=== PATIENT | male | born 1965 | race Caucasian/White ===

== ENCOUNTER 2020-09-02 01:37 | Emergency (ER) | payer BC ==
[2020-09-02 02:08] VITALS: BP 133/83
== END 2020-09-02 05:37 | disposition left against medical advice (07) ==
LOC: ED 01:37
DX: E11.9 Type 2 diabetes mellitus without complications (principal); Z53.21 Procedure and treatment not carried out due to patient leaving prior to being seen by health care provider
CPT/HCPCS: 82962

== ENCOUNTER 2020-09-10 00:55 | Emergency (ER) | payer BC ==
--- NOTE | 2020-09-10 01:52 | Event Note ---
ED Screening Note ED Screening Note: Patient presents for hyperglycemia for 2 days He states his sugars have been over 600 for the last 2 days He states that he takes Metformin and insulin as needed He states he typically only uses the insulin if his sugar is greater than 300 He states he has urinary frequency, polydipsia, dry mouth He denies any fever, nausea, vomiting, diarrhea He denies any recent illness Past medical history of diabetes and hypertension Allergy to aspirin This initial assessment/diagnostic orders/clinical plan/treatment(s) is/are subject to change based on patients health status, clinical progression and re- assessment by fellow clinical providers in the ED. Further treatment and workup at subsequent clinical providers discretion. Patient/guardian urged not to elope from the ED as their condition may be serious if not clinically assessed and managed. Initial orders include: Labs, urine
[2020-09-10 02:09] LABS: Bilirubin,Urine NEG (Negative); Blood,Urine NEG (Negative); Color,Urine Straw (Yellow); Protein,Urine <15 mg/dL mg/dL (Negative); Urobilinogen,Urine < 2.0 mg/dL (<2.0)
[2020-09-10 02:13] LABS: RBC,Urine < 1.0 /HPF (0.0-6.0); WBC,Urine < 1.0 /HPF (0.0-6.0)
[2020-09-10 02:21] LABS: Basophils % (Auto) 0.5 % (0.0-1.8); Eosinophils # (Auto) 0.4 K/mm3 (0.0-0.4); Eosinophils % (Auto) 4.3 % (0.0-4.3); Hemoglobin 16.6 gm/dl (11.8-15.2); Lymphocytes % (Auto) 35.9 % (13.4-35.0); Mean Corpuscular HGB Conc 35 % (32-34); Mean Corpuscular Volume 93 fl (84-94); Monocytes # (Auto) 0.9 K/mm3 (0.0-0.8); Monocytes % (Auto) 10.4 % (0.0-7.3); Platelet Count 297 K/mm3 (140-440); Red Blood Count 5.14 M/mm3 (3.65-5.03); Red Cell Distribution Width 12.8 % (13.2-15.2)
[2020-09-10 02:43] LABS: Alanine Aminotransferase 25 units/L (7-56); Albumin 4.1 g/dL (3.9-5); BUN/Creatinine Ratio 21; Blood Urea Nitrogen 17 mg/dL (9-20); Calcium 10.9 mg/dL (8.4-10.2); Hemolysis Index 6
[2020-09-10] MEDS ORDERED: SODIUM CHLORIDE 0.9% 1000 ML 1,000 ML IV ONE (03:09)
[2020-09-10] MEDS ORDERED: ACETAMINOPHEN 325 MG TAB PO ONE (03:10)
--- NOTE | 2020-09-10 03:24 | Emergency Department Report ---
ED General Adult HPI - General Chief complaint: Hyperglycemia Stated complaint: HIGH BLOOD SUGAR Time Seen by Provider: 09/10/20 01:51 Source: patient Mode of arrival: Ambulatory Limitations: No Limitations - History of Present Illness Initial comments: Language line used for Romanian interpretation Patient is a 55 yo male who presents for hyperglycemia for 2 days He states his sugars have been over 600 for the last 2 days He states that he takes Metformin and insulin as needed He states he typically only uses the insulin if his sugar is greater than 300 He states he has urinary frequency, polydipsia, dry mouth He denies any fever, nausea, vomiting, diarrhea He denies any recent illness he states he does have a mild headache he states he also gets a burning/tingling sensation in his fingertips Past medical history of diabetes and hypertension Allergy to aspirin - Related Data Previous Rx's Medication Instructions Recorded Last Taken Type Benzonatate [Tessalon Perles] 100 mg PO Q8HR PRN #20 capsule 05/31/19 Unknown Rx Pantoprazole [Protonix] 40 mg PO QDAY #30 tablet 12/27/19 Unknown Rx amLODIPine 10 mg PO DAILY #30 12/27/19 Unknown Rx metFORMIN [Glucophage] 850 mg PO BIDDIAB #60 tablet 12/27/19 Unknown Rx Allergies Allergy/AdvReac Type Severity Reaction Status Date / Time aspirin AdvReac Severe Swelling Verified 05/30/19 20:30 ED Review of Systems ROS: Stated complaint: HIGH BLOOD SUGAR Other details as noted in HPI Comment: All other systems reviewed and negative ED Past Medical Hx - Past Medical History Previous Medical History?: Yes Hx Hypertension: Yes Hx Diabetes: Yes Additional medical history: Hyperlipidemia - Surgical History Past Surgical History?: Yes Hx Appendectomy: Yes - Social History Smoking Status: Current Every Day Smoker Substance Use Type: Alcohol - Medications Home Medications: Home Medications Medication Instructions Recorded Confirmed Last Taken Type Benzonatate [Tessalon Perles] 100 mg PO Q8HR PRN #20 capsule 05/31/19 Unknown Rx Pantoprazole [Protonix] 40 mg PO QDAY #30 tablet 12/27/19 Unknown Rx amLODIPine 10 mg PO DAILY #30 12/27/19 Unknown Rx metFORMIN [Glucophage] 850 mg PO BIDDIAB #60 tablet 12/27/19 Unknown Rx ED Physical Exam - General Limitations: No Limitations General appearance: alert, in no apparent distress - Head Head exam: Present: atraumatic, normocephalic - Eye Eye exam: Present: normal appearance - ENT ENT exam: Present: mucous membranes moist - Respiratory Respiratory exam: Present: normal lung sounds bilaterally. Absent: respiratory distress, wheezes, rales, rhonchi, stridor, chest wall tenderness, accessory muscle use, decreased breath sounds, prolonged expiratory - Cardiovascular Cardiovascular Exam: Present: regular rate, normal rhythm, normal heart sounds. Absent: systolic murmur, diastolic murmur, rubs, gallop - Neurological Exam Neurological exam: Present: alert, oriented X3 - Psychiatric Psychiatric exam: Present: normal affect, normal mood - Skin Skin exam: Present: warm, dry, intact ED Course Vital Signs 09/10/20 09/10/20 09/10/20 01:15 05:10 05:40 Temperature 97.9 F 97.6 F Pulse Rate 110 H 82 Respiratory 16 16 18 Rate Blood Pressure 140/81 Blood Pressure 121/67 [Right] O2 Sat by Pulse 95 97 98 Oximetry ED Medical Decision Making - Lab Data Result diagrams: 09/10/20 01:56 09/10/20 01:56 Lab Results 09/10/20 09/10/20 09/10/20 Range/Units 01:15 01:55 01:56 WBC 8.5 (4.5-11.0) K/mm3 RBC 5.14 H (3.65-5.03) M/mm3 Hgb 16.6 H (11.8-15.2) gm/dl Hct 48.0 H (35.5-45.6) % MCV 93 (84-94) fl MCH 32 (28-32) pg MCHC 35 H (32-34) % RDW 12.8 L (13.2-15.2) % Plt Count 297 (140-440) K/mm3 Lymph % (Auto) 35.9 H (13.4-35.0) % Barber % (Auto) 10.4 H (0.0-7.3) % Eos % (Auto) 4.3 (0.0-4.3) % Baso % (Auto) 0.5 (0.0-1.8) % Lymph # (Auto) 3.0 (1.2-5.4) K/mm3 Barber # (Auto) 0.9 H (0.0-0.8) K/mm3 Eos # (Auto) 0.4 (0.0-0.4) K/mm3 Baso # (Auto) 0.0 (0.0-0.1) K/mm3 Seg Neutrophils % 48.9 (40.0-70.0) % Seg Neutrophils # 4.1 (1.8-7.7) K/mm3 VBG pH (7.320-7.420) Sodium (137-145) mmol/L Potassium (3.6-5.0) mmol/L Chloride (98-107) mmol/L Carbon Dioxide (22-30) mmol/L Anion Gap mmol/L BUN (9-20) mg/dL Creatinine (0.8-1.3) mg/dL Estimated GFR ml/min BUN/Creatinine Ratio % Glucose (75-100) mg/dL POC Glucose 280 H (70-105) mg/dL Calcium (8.4-10.2) mg/dL Total Bilirubin (0.1-1.2) mg/dL AST (5-40) units/L ALT (7-56) units/L Alkaline Phosphatase (35-129) units/L Total Protein (6.3-8.2) g/dL Albumin (3.9-5) g/dL Albumin/Globulin Ratio % Urine Color Straw (Yellow) Urine Turbidity Clear (Clear) Urine pH 7.0 (5.0-7.0) Ur Specific [place] 1.026 (1.003-1.030) Urine Protein <15 mg/dl (Negative) mg/dL Urine Glucose (UA) >=500 (Negative) mg/dL Urine Ketones Tr (Negative) mg/dL Urine Blood Neg (Negative) Urine Nitrite Neg (Negative) Urine Bilirubin Neg (Negative) Urine Urobilinogen < 2.0 (<2.0) mg/dL Ur Leukocyte Esterase Neg (Negative) Urine WBC (Auto) < 1.0 (0.0-6.0) /HPF Urine RBC (Auto) < 1.0 (0.0-6.0) /HPF U Epithel Cells (Auto) < 1.0 (0-13.0) /HPF 09/10/20 09/10/20 09/10/20 Range/Units 01:56 01:56 05:08 WBC (4.5-11.0) K/mm3 RBC (3.65-5.03) M/mm3 Hgb (11.8-15.2) gm/dl Hct (35.5-45.6) % MCV (84-94) fl MCH (28-32) pg MCHC (32-34) % RDW (13.2-15.2) % Plt Count (140-440) K/mm3 Lymph % (Auto) (13.4-35.0) % Barber % (Auto) (0.0-7.3) % Eos % (Auto) (0.0-4.3) % Baso % (Auto) (0.0-1.8) % Lymph # (Auto) (1.2-5.4) K/mm3 Barber # (Auto) (0.0-0.8) K/mm3 Eos # (Auto) (0.0-0.4) K/mm3 Baso # (Auto) (0.0-0.1) K/mm3 Seg Neutrophils % (40.0-70.0) % Seg Neutrophils # (1.8-7.7) K/mm3 VBG pH 7.387 (7.320-7.420) Sodium 135 L (137-145) mmol/L Potassium 4.0 (3.6-5.0) mmol/L Chloride 100.5 (98-107) mmol/L Carbon Dioxide 22 (22-30) mmol/L Anion Gap 17 mmol/L BUN 17 (9-20) mg/dL Creatinine 0.8 (0.8-1.3) mg/dL Estimated GFR > 60 ml/min BUN/Creatinine Ratio 21 % Glucose 281 H (75-100) mg/dL POC Glucose 170 H (70-105) mg/dL Calcium 10.9 H (8.4-10.2) mg/dL Total Bilirubin 0.20 (0.1-1.2) mg/dL AST 15 (5-40) units/L ALT 25 (7-56) units/L Alkaline Phosphatase 89 (35-129) units/L Total Protein 7.2 (6.3-8.2) g/dL Albumin 4.1 (3.9-5) g/dL Albumin/Globulin Ratio 1.3 % Urine Color (Yellow) Urine Turbidity (Clear) Urine pH (5.0-7.0) Ur Specific [place] (1.003-1.030) Urine Protein (Negative) mg/dL Urine Glucose (UA) (Negative) mg/dL Urine Ketones (Negative) mg/dL Urine Blood (Negative) Urine Nitrite (Negative) Urine Bilirubin (Negative) Urine Urobilinogen (<2.0) mg/dL Ur Leukocyte Esterase (Negative) Urine WBC (Auto) (0.0-6.0) /HPF Urine RBC (Auto) (0.0-6.0) /HPF U Epithel Cells (Auto) (0-13.0) /HPF Vital Signs 09/10/20 09/10/20 09/10/20 01:15 05:10 05:40 Temperature 97.9 F 97.6 F Pulse Rate 110 H 82 Respiratory 16 16 18 Rate Blood Pressure 140/81 Blood Pressure 121/67 [Right] O2 Sat by Pulse 95 97 98 Oximetry - Medical Decision Making Language line used for Romanian interpretation Patient is a 55 yo male who presents for hyperglycemia for 2 days He states his sugars have been over 600 for the last 2 days He states that he takes Metformin and insulin as needed He states he typically only uses the insulin if his sugar is greater than 300 He states he has urinary frequency, polydipsia, dry mouth He denies any fever, nausea, vomiting, diarrhea He denies any recent illness he states he does have a mild headache he states he also gets a burning/tingling sensation in his fingertips Past medical history of diabetes and hypertension Allergy to aspirin Initial vitals with mild tachycardia which improved to normal upon repeat. No abnormality on physical examination as documented in chart. Labs with elevated blood glucose at 281, anion gap is normal, no significant dehydration, UA shows glucose but otherwise normal. Patient given 1 L fluids while in the ED and Tylenol. Symptoms are likely related to his diabetes and possibility of diabetic neuropathy. After 1 L IV fluids blood glucose is 170. advised pt Please increase your water intake. Follow-up with your primary care doctor. Please discuss with your primary care doctor about your blood sugar. You may need to be on a daily insulin regimen, please discuss this with your primary care doctor. Return to emergency room for any new or worsening symptoms. Critical care attestation.: If time is entered above; I have spent that time in minutes in the direct care of this critically ill patient, excluding procedure time. ED Disposition Clinical Impression: Hyperglycemia Disposition: DC-01 TO HOME OR SELFCARE Is pt being admited?: No Does the pt Need Aspirin: No Condition: Stable Instructions: Hyperglycemia, [id number], Carbohydrate Counting for Diabetes Mellitus, Adult, Blood Glucose Monitoring, Adult Additional Instructions: Please increase your water intake. Follow-up with your primary care doctor. Please discuss with your primary care doctor about your blood sugar. You may need to be on a daily insulin regimen, please discuss this with your primary care doctor. Return to emergency room for any new or worsening symptoms. Aumente thrasher consumo de agua. Damir un seguimiento con thrasher mdico de atencin prim aria. Hable con thrasher mdico de atencin primaria sobre thrasher nivel de azcar en liborio. Es posible que deba seguir un rgimen diario de insulina; hable de esto con thrasher mdico de atencin primaria. Regrese a la sonya de emergencias por cualquier sntoma nuevo o que empeore. Referrals: PRIMARY CARE, [Primary Care Provider] - 2-3 Days Time of Disposition: 05:11 Print Language: KAZAKH
[2020-09-10 05:11] VITALS: BP 121/67
== END 2020-09-10 05:42 | disposition home or self-care (01) ==
LOC: ED 00:55
DX: E11.65 Type 2 diabetes mellitus with hyperglycemia (principal); I10 Essential (primary) hypertension; E78.5 Hyperlipidemia, unspecified; F17.200 Nicotine dependence, unspecified, uncomplicated; Z79.899 Other long term (current) drug therapy; Z90.49 Acquired absence of other specified parts of digestive tract; Z88.8 Allergy status to other drugs, medicaments and biological substances
CPT/HCPCS: 36415; 80053; 81001; 82805; 82962; 85025; 96360; 99284; J7030

== ENCOUNTER 2021-02-13 17:05 | Emergency (ER) | payer BC ==
[2021-02-13 17:35] VITALS: BP 149/93
--- NOTE | 2021-02-13 18:46 | Event Note ---
ED Screening Note ED Screening Note: pt presents for scalp abscess went to PCP and started on bactrim and tramadol 02/12/2021 states continues to have pain and swelling This initial assessment/diagnostic orders/clinical plan/treatment(s) is/are subject to change based on patients health status, clinical progression and re- assessment by fellow clinical providers in the ED. Further treatment and workup at subsequent clinical providers discretion. Patient/guardian urged not to elope from the ED as their condition may be serious if not clinically assessed and managed. Initial orders include: acc for possible I&D eval
[2021-02-13] MEDS ORDERED: HYDROcodone/ACETAMINOPHEN 5-325 MG TAB PO ONE (19:37)
[2021-02-13] MEDS ORDERED: LIDOCAINE (1%) 10 MG/1 ML VIAL 20 ML MDV INFILTRATI ONE (19:37)
[2021-02-13] MEDS ORDERED: CLINDAMYCIN 300 MG CAP PO ONE (19:59)
--- NOTE | 2021-02-13 20:04 | Emergency Department Report ---
ED General Adult HPI - General Chief complaint: Skin/Abscess/Foreign Body Stated complaint: neck pains Time Seen by Provider: 02/13/21 18:43 Source: patient, family Mode of arrival: Ambulatory Limitations: No Limitations - History of Present Illness Initial comments: pt is a 56 y/o presents for scalp abscess x 1 week , went to PCP and started on bactrim and tramadol 02/12/2021, states continues to have pain and swelling with erythema. pt denies fever or chills, no n/v. pain is 5/10 soreness exacerbated by palpation and movement. symptoms relieved by nothing tried. Pt does endors hx of recurrent abscesses. - Related Data Previous Rx's Medication Instructions Recorded Last Taken Type Benzonatate [Tessalon Perles] 100 mg PO Q8HR PRN #20 capsule 05/31/19 Unknown Rx Pantoprazole [Protonix] 40 mg PO QDAY #30 tablet 12/27/19 Unknown Rx amLODIPine 10 mg PO DAILY #30 12/27/19 Unknown Rx metFORMIN [Glucophage] 850 mg PO BIDDIAB #60 tablet 12/27/19 Unknown Rx Allergies Allergy/AdvReac Type Severity Reaction Status Date / Time aspirin AdvReac Severe Swelling Verified 02/13/21 17:28 ED Review of Systems ROS: Stated complaint: neck pains Other details as noted in HPI Constitutional: denies: chills, fever Eyes: denies: eye pain, eye discharge, vision change ENT: denies: ear pain, throat pain Respiratory: denies: cough, shortness of breath, wheezing Cardiovascular: denies: chest pain, palpitations Endocrine: no symptoms reported Gastrointestinal: denies: abdominal pain, nausea, diarrhea Genitourinary: denies: urgency, dysuria Musculoskeletal: denies: back pain, joint swelling, arthralgia Skin: other (abscess 2x3 cm posterior scalp ) ED Past Medical Hx - Past Medical History Hx Hypertension: Yes Hx Diabetes: Yes Additional medical history: Hyperlipidemia - Surgical History Hx Appendectomy: Yes - Social History Smoking Status: Never Smoker Substance Use Type: None - Medications Home Medications: Home Medications Medication Instructions Recorded Confirmed Last Taken Type Benzonatate [Tessalon Perles] 100 mg PO Q8HR PRN #20 capsule 05/31/19 Unknown Rx Pantoprazole [Protonix] 40 mg PO QDAY #30 tablet 12/27/19 Unknown Rx amLODIPine 10 mg PO DAILY #30 12/27/19 Unknown Rx metFORMIN [Glucophage] 850 mg PO BIDDIAB #60 tablet 12/27/19 Unknown Rx ED Physical Exam - General Limitations: No Limitations General appearance: alert, in no apparent distress - Head Head exam: Present: atraumatic, normocephalic - Eye Eye exam: Present: normal appearance, EOMI Pupils: Present: normal accommodation - ENT ENT exam: Present: mucous membranes moist - Neck Neck exam: Present: normal inspection, full ROM. Absent: tenderness - Respiratory Respiratory exam: Present: normal lung sounds bilaterally. Absent: respiratory distress, wheezes, chest wall tenderness - Cardiovascular Cardiovascular Exam: Present: regular rate, normal rhythm, normal heart sounds. Absent: systolic murmur, diastolic murmur, rubs, gallop - GI/Abdominal GI/Abdominal exam: Present: soft, normal bowel sounds. Absent: distended, tenderness - Rectal Rectal exam: Present: deferred - Extremities Exam Extremities exam: Present: normal inspection, full ROM. Absent: tenderness - Back Exam Back exam: Present: normal inspection, full ROM. Absent: tenderness - Neurological Exam Neurological exam: Present: alert, oriented X3, CN II-XII intact, normal gait - Psychiatric Psychiatric exam: Present: normal affect, normal mood - Skin Skin exam: Present: warm, dry, intact, erythema (posterior scalp abscess 2x3 cm fluctuant, warm to touch, erythema, pain to touch). Absent: rash ED Course Vital Signs 02/13/21 17:33 Temperature 99.9 F H Pulse Rate 112 H Respiratory 18 Rate Blood Pressure 149/93 O2 Sat by Pulse 94 Oximetry - I & D Posterior Head Type of Procedure: Simple (Posterior scalp abscess 2 x 3 cm erythema fluctuant painful to touch) Site: 2x3 cm I & D Procedure: betadine prep, sterile dressing applied Progress: Posterior scalp abscess to be 3 cm, site cleaned with Betadine solution, anesthesia with 1% lidocaine x3 cc. Incision with 11 blade scalpel x1, loculat ions broken up with six-inch blunt forceps. Moderate purulent output noted. Wound irrigated with 30 cc sterile saline. Patient declined iodoform packing. Sterile dressing is applied, all bleeding is controlled. Patient tolerated procedure with minimal distress. Patient given post I&D care instructions patient verbalized understanding of same. ED Medical Decision Making - Medical Decision Making Posterior scalp abscess for I&D. See procedure note. All bleeding is controlled. Patient advises symptoms are improved. Patient currently taking Bactrim x1 day. Patient will continue the same and follow-up with primary care doctor in 7 to 10 days as directed. Patient verbalized agreement and understanding with post I&D wound care. Patient DC'd home in stable condition at this time. Critical care attestation.: If time is entered above; I have spent that time in minutes in the direct care of this critically ill patient, excluding procedure time. ED Disposition Clinical Impression: Scalp abscess, Cellulitis of scalp Disposition: DC-01 TO HOME OR SELFCARE Is pt being admited?: No Does the pt Need Aspirin: No Condition: Stable Instructions: Skin Abscess, [id number], Cellulitis, Adult, [id number] Additional Instructions: take medications as prescribed, follow up with your doctor in 2-3 day for wound check, return to emergency if symptoms worsen. Referrals: TERRY JARRETT MD [Staff Physician] - 3-5 Days Forms: Work/School Release Form(ED) Time of Disposition: 20:09
== END 2021-02-13 20:17 | disposition home or self-care (01) ==
LOC: ED 17:05
DX: L03.811 Cellulitis of head [any part, except face] (principal); L02.811 Cutaneous abscess of head [any part, except face]; E78.5 Hyperlipidemia, unspecified; I10 Essential (primary) hypertension; E11.9 Type 2 diabetes mellitus without complications; Z79.899 Other long term (current) drug therapy; Z88.8 Allergy status to other drugs, medicaments and biological substances; Z90.49 Acquired absence of other specified parts of digestive tract

== ENCOUNTER 2022-01-18 20:12 | Emergency (ER) | payer BC ==
[2022-01-18] MEDS ORDERED: SODIUM CHLORIDE 0.9% 1000 ML 1,000 ML IV ONE ×2 (20:20→22:26)
[2022-01-18 20:49] LABS: Bilirubin,Urine NEG (Negative); Blood,Urine SM (Negative); Color,Urine Colorless (Yellow); Protein,Urine <15 mg/dL mg/dL (Negative); RBC,Urine < 1.0 /HPF (0.0-6.0); Urobilinogen,Urine < 2.0 mg/dL (<2.0); WBC,Urine < 1.0 /HPF (0.0-6.0)
[2022-01-18 20:57] LABS: Amphetamine Screen,Urine Negative; Benzodiazepines Screen,Urine Negative; Cannabinoid Screen,Urine Negative; Cocaine Screen,Urine Negative; Methadone Screen,Urine Negative; Opiate Screen,Urine Negative
--- NOTE | 2022-01-18 21:00 | XRay Report ---
CHEST 1 VIEW INDICATION / CLINICAL INFORMATION: Altered Mental Status. COMPARISON: 12/26/2019 FINDINGS: SUPPORT DEVICES: None. HEART / MEDIASTINUM: No significant abnormality. LUNGS / PLEURA: No significant pulmonary or pleural abnormality. No pneumothorax. ADDITIONAL FINDINGS: No significant additional findings. IMPRESSION: 1. No acute findings. Signer Name: Wai Ruffin MD Signed: 01/18/2022 8:55 PM Workstation Name: [id number]
[2022-01-18 21:27] LABS: ABG Base Excess -5.1 mmol/L (-2.0-3.0); ABG HCO3 12.9 mmol/L (20.0-26.0); ABG Methemoglobin 0.5 % (0.0-1.5); ABG Oxygen Saturation 98.7 % (95.0-99.0); ABG PCO2 14.8 mm Hg; ABG PH 7.559 pH Units (7.350-7.450); ABG PO2 117.1 mm Hg (80.0-90.0)
[2022-01-18 21:52] LABS: Basophils % (Auto) 0.6 % (0.0-1.8); Eosinophils # (Auto) 0.2 K/mm3 (0.0-0.4); Eosinophils % (Auto) 3.4 % (0.0-4.3); Hematocrit 47.3 % (35.5-45.6); Lymphocytes # (Auto) 2.6 K/mm3 (1.2-5.4); Lymphocytes % (Auto) 39.3 % (13.4-35.0); Mean Corpuscular HGB Conc 34 % (32-34); Mean Corpuscular Volume 93 fl (84-94); Monocytes # (Auto) 0.7 K/mm3 (0.0-0.8); Monocytes % (Auto) 10.5 % (0.0-7.3); Platelet Count 276 K/mm3 (140-440); Red Blood Count 5.08 M/mm3 (3.65-5.03); Red Cell Distribution Width 12.8 % (13.2-15.2)
[2022-01-18 21:59] LABS: INR 0.87 (0.87-1.13)
[2022-01-18] MEDS ORDERED: IPRATROPIUM 0.02% NEBU 2.5 ML IH ONE (22:10)
[2022-01-18] MEDS ORDERED: ALBUTEROL 2.5 MG/3 ML NEBU IH ONE (22:10)
[2022-01-18 22:19] LABS: Alanine Aminotransferase 15 units/L (7-56); Albumin 4.2 g/dL (3.9-5); BUN/Creatinine Ratio 8; Blood Urea Nitrogen 6 mg/dL (9-20); Calcium 9.4 mg/dL (8.4-10.2); Hemolysis Index 7
--- NOTE | 2022-01-18 23:34 | Emergency Department Report ---
ED Altered Mental Status HPI - General Chief Complaint: Altered Mental Status Stated Complaint: ETOH/UNRESPONSIVE Time Seen by Provider: 01/18/22 20:20 Source: family Mode of arrival: Wheelchair Limitations: No Limitations, Language Barrier, Altered Mental Status - History of Present Illness Initial Comments: BIB Son, Son states that he was called by father stating that he wasnt feeling good, when son arrived patient was found outside home on the grond unresponsive MD Complaint: altered mental status, confusion, decreased responsiveness -: hour(s) Severity: severe Context: alcohol abuse Associated Symptoms: denies: denies other symptoms, chest pain, cough, diaphoresis, malaise - Related Data Previous Rx's Medication Instructions Recorded Last Taken Type Benzonatate [Tessalon Perles] 100 mg PO Q8HR PRN #20 capsule 05/31/19 Unknown Rx Pantoprazole [Protonix] 40 mg PO QDAY #30 tablet 12/27/19 Unknown Rx amLODIPine 10 mg PO DAILY #30 12/27/19 Unknown Rx metFORMIN [Glucophage] 850 mg PO BIDDIAB #60 tablet 12/27/19 Unknown Rx Allergies Allergy/AdvReac Type Severity Reaction Status Date / Time aspirin AdvReac Severe Swelling Verified 02/13/21 17:28 ED Review of Systems ROS: Stated complaint: ETOH/UNRESPONSIVE Other details as noted in HPI Comment: Unobtainable due to pts medical conditions ED Past Medical Hx - Past Medical History Previous Medical History?: Yes Hx Hypertension: Yes Hx Diabetes: Yes Additional medical history: Hyperlipidemia - Surgical History Past Surgical History?: Yes Hx Appendectomy: Yes - Social History Smoking Status: Never Smoker Substance Use Type: None - Medications Home Medications: Home Medications Medication Instructions Recorded Confirmed Last Taken Type Benzonatate [Tessalon Perles] 100 mg PO Q8HR PRN #20 capsule 05/31/19 Unknown Rx Pantoprazole [Protonix] 40 mg PO QDAY #30 tablet 12/27/19 Unknown Rx amLODIPine 10 mg PO DAILY #30 12/27/19 Unknown Rx metFORMIN [Glucophage] 850 mg PO BIDDIAB #60 tablet 12/27/19 Unknown Rx ED Physical Exam - General Limitations: No Limitations General appearance: appears intoxicated, other (confused , altered , decrease responsiveness ) - Head Head exam: Present: atraumatic, normocephalic - Eye Eye exam: Present: normal appearance - ENT ENT exam: Present: mucous membranes moist - Neck Neck exam: Present: normal inspection - Respiratory Respiratory exam: Present: normal lung sounds bilaterally. Absent: respiratory distress - Cardiovascular Cardiovascular Exam: Present: normal rhythm, tachycardia. Absent: systolic murmur, diastolic murmur, rubs, gallop - GI/Abdominal GI/Abdominal exam: Present: soft, normal bowel sounds - Rectal Rectal exam: Present: deferred - Extremities Exam Extremities exam: Present: normal inspection - Back Exam Back exam: Present: normal inspection - Expanded Neurological Exam Expanded Best Eye Response ([place]): (3) open to voice Best Motor Response ([place]): (5) localizes to pain Best Verbal Response ([place]): (3) inappropriate words [place] Total: 11 - Psychiatric Psychiatric exam: Present: depressed - Skin Skin exam: Present: warm, dry, intact, normal color. Absent: rash ED Course Vital Signs 01/18/22 01/18/22 01/18/22 20:20 20:30 20:37 Temperature 98.9 F Pulse Rate 90 128 H Respiratory 16 23 Rate Blood Pressure 135/85 O2 Sat by Pulse 98 97 Oximetry 01/18/22 01/18/22 01/18/22 20:46 21:00 21:16 Temperature Pulse Rate 93 H 82 83 Respiratory 14 20 20 Rate Blood Pressure 135/85 135/85 O2 Sat by Pulse 96 Oximetry 01/18/22 01/18/22 01/18/22 21:30 21:45 22:57 Temperature Pulse Rate 81 92 H Respiratory 13 11 L Rate Blood Pressure 111/66 O2 Sat by Pulse 97 Oximetry 01/18/22 01/18/22 01/18/22 23:00 23:16 23:30 Temperature Pulse Rate Respiratory Rate Blood Pressure 111/66 111/66 111/66 O2 Sat by Pulse 97 99 99 Oximetry 01/18/22 01/19/22 01/19/22 23:46 00:06 00:16 Temperature Pulse Rate Respiratory Rate Blood Pressure 111/66 111/66 111/66 O2 Sat by Pulse 97 98 94 Oximetry 01/19/22 01/19/22 01/19/22 00:30 00:46 01:00 Temperature Pulse Rate 78 Respiratory 12 Rate Blood Pressure 115/72 115/72 106/62 O2 Sat by Pulse 92 96 98 Oximetry 05/16/22 05/16/22 05/16/22 01:16 01:30 01:46 Temperature Pulse Rate 76 86 78 Respiratory 13 17 16 Rate Blood Pressure 106/62 107/57 107/57 O2 Sat by Pulse 98 99 97 Oximetry 01/19/22 01/19/22 01/19/22 02:00 02:16 02:30 Temperature Pulse Rate 81 83 92 H Respiratory 16 16 15 Rate Blood Pressure 112/61 112/61 109/56 O2 Sat by Pulse 97 97 96 Oximetry 01/19/22 01/19/22 01/19/22 02:46 03:00 03:16 Temperature Pulse Rate 89 89 76 Respiratory 15 18 15 Rate Blood Pressure 109/56 123/74 123/74 O2 Sat by Pulse 96 95 94 Oximetry 01/19/22 01/19/22 01/19/22 03:30 03:46 04:00 Temperature Pulse Rate 84 79 79 Respiratory 13 14 17 Rate Blood Pressure 110/68 110/68 126/79 O2 Sat by Pulse 99 98 95 Oximetry 01/19/22 01/19/22 01/19/22 04:16 04:30 04:46 Temperature Pulse Rate 78 77 75 Respiratory 18 18 19 Rate Blood Pressure 126/79 117/72 117/72 O2 Sat by Pulse 99 98 97 Oximetry 01/19/22 01/19/22 01/19/22 05:00 05:16 05:30 Temperature Pulse Rate 89 85 88 Respiratory 20 15 15 Rate Blood Pressure 127/70 127/70 120/61 O2 Sat by Pulse 97 98 97 Oximetry 01/19/22 01/19/22 01/19/22 05:46 06:00 06:16 Temperature Pulse Rate 78 84 89 Respiratory 15 15 16 Rate Blood Pressure 120/61 119/76 119/76 O2 Sat by Pulse 96 93 97 Oximetry 01/19/22 01/19/22 01/19/22 06:30 06:46 07:00 Temperature Pulse Rate 85 90 80 Respiratory 15 15 16 Rate Blood Pressure 134/78 134/78 114/82 O2 Sat by Pulse 96 96 97 Oximetry 01/19/22 01/19/22 01/19/22 07:16 07:30 07:46 Temperature Pulse Rate 76 80 76 Respiratory 17 16 15 Rate Blood Pressure 114/82 121/76 116/58 O2 Sat by Pulse 96 97 97 Oximetry 01/19/22 01/19/22 01/19/22 08:00 08:16 08:30 Temperature Pulse Rate 85 87 80 Respiratory 9 L 17 15 Rate Blood Pressure 108/55 130/73 128/76 O2 Sat by Pulse 97 97 96 Oximetry 01/19/22 01/19/22 01/19/22 08:46 09:00 09:16 Temperature Pulse Rate 93 H 77 80 Respiratory 13 21 17 Rate Blood Pressure 113/66 115/63 132/73 O2 Sat by Pulse 100 97 96 Oximetry 01/19/22 01/19/22 01/19/22 09:30 09:46 10:00 Temperature Pulse Rate 81 88 81 Respiratory 15 15 16 Rate Blood Pressure 116/71 119/66 119/72 O2 Sat by Pulse 96 97 97 Oximetry 01/19/22 01/19/22 01/19/22 10:16 10:30 10:46 Temperature Pulse Rate 91 H 83 92 H Respiratory 18 15 17 Rate Blood Pressure 115/61 125/83 128/81 O2 Sat by Pulse 97 97 97 Oximetry 01/19/22 01/19/22 01/19/22 11:00 11:16 11:30 Temperature Pulse Rate 75 76 70 Respiratory 16 15 18 Rate Blood Pressure 117/76 117/77 122/72 O2 Sat by Pulse 97 96 97 Oximetry 01/19/22 01/19/22 01/19/22 11:46 12:00 12:16 Temperature Pulse Rate 85 78 87 Respiratory 16 13 16 Rate Blood Pressure 128/75 142/76 132/94 O2 Sat by Pulse 97 98 98 Oximetry 01/19/22 01/19/22 01/19/22 12:30 12:46 13:00 Temperature Pulse Rate 90 98 H 100 H Respiratory 12 15 15 Rate Blood Pressure 119/79 114/58 102/55 O2 Sat by Pulse 97 96 95 Oximetry 01/19/22 01/19/22 01/19/22 13:16 13:30 13:46 Temperature Pulse Rate 87 85 83 Respiratory 18 14 17 Rate Blood Pressure 133/73 140/84 110/69 O2 Sat by Pulse 95 98 98 Oximetry 01/19/22 01/19/22 01/19/22 14:00 14:16 14:30 Temperature Pulse Rate 99 H 93 H 88 Respiratory 17 12 8 L Rate Blood Pressure 128/80 120/74 127/81 O2 Sat by Pulse 99 98 99 Oximetry 05/16/22 05/16/22 05/16/22 14:50 15:01 15:15 Temperature Pulse Rate 76 80 78 Respiratory 13 17 14 Rate Blood Pressure 104/62 114/62 O2 Sat by Pulse 97 97 97 Oximetry 01/19/22 01/19/22 01/19/22 15:31 15:45 16:01 Temperature Pulse Rate 96 H 68 77 Respiratory 11 L 17 20 Rate Blood Pressure 131/75 109/62 126/72 O2 Sat by Pulse 97 95 97 Oximetry - Lab Data Result diagrams: 01/18/22 21:35 01/18/22 21:35 Lab Results 01/18/22 01/18/22 01/18/22 Range/Units 20:20 20:33 20:33 WBC (4.5-11.0) K/mm3 RBC (3.65-5.03) M/mm3 Hgb (11.8-15.2) gm/dl Hct (35.5-45.6) % MCV (84-94) fl MCH (28-32) pg MCHC (32-34) % RDW (13.2-15.2) % Plt Count (140-440) K/mm3 Lymph % (Auto) (13.4-35.0) % [place] % (Auto) (0.0-7.3) % Eos % (Auto) (0.0-4.3) % Baso % (Auto) (0.0-1.8) % Lymph # (Auto) (1.2-5.4) K/mm3 [place] # (Auto) (0.0-0.8) K/mm3 Eos # (Auto) (0.0-0.4) K/mm3 Baso # (Auto) (0.0-0.1) K/mm3 Seg Neutrophils % (40.0-70.0) % Seg Neutrophils # (1.8-7.7) K/mm3 PT (12.2-14.9) Sec. INR (0.87-1.13) ABG pH 7.559 H (7.350-7.450) pH Units ABG pCO2 14.8 mm Hg ABG pO2 117.1 H (80.0-90.0) mm Hg ABG HCO3 12.9 L (20.0-26.0) mmol/L ABG O2 Saturation 98.7 (95.0-99.0) % ABG O2 Content 22.9 (0.0-44) ABG Base Excess -5.1 L (-2.0-3.0) mmol/L ABG Hemoglobin 17.3 (14.0-18.0) gm/dl ABG Carboxyhemoglobin 4.6 (0.0-5.0) % ABG Methemoglobin 0.5 (0.0-1.5) % Oxyhemoglobin 93.6 L (95.0-99.0) % FiO2 21 % Sodium (137-145) mmol/L Potassium (3.6-5.0) mmol/L Chloride (98-107) mmol/L Carbon Dioxide (22-30) mmol/L Anion Gap mmol/L BUN (9-20) mg/dL Creatinine (0.8-1.3) mg/dL Estimated GFR ml/min BUN/Creatinine Ratio % Glucose (75-100) mg/dL Ketones Quantitative (Negative) Lactic Acid (0.7-2.0) mmol/L Calcium (8.4-10.2) mg/dL Total Bilirubin (0.1-1.2) mg/dL AST (5-40) units/L ALT (7-56) units/L Alkaline Phosphatase (35-129) units/L Ammonia (25-60) umol/L Total Creatine Kinase (55-170) units/L Troponin T (0.00-0.029) ng/mL C-Reactive Protein (0.00-1.30) mg/dL NT-Pro-B Natriuret Pep (0-900) pg/mL Total Protein (6.3-8.2) g/dL Albumin (3.9-5) g/dL Albumin/Globulin Ratio % Urine Color Colorless (Yellow) Urine Turbidity Clear (Clear) Urine pH 6.0 (5.0-7.0) Ur Specific [place] 1.007 (1.003-1.030) Urine Protein <15 mg/dl (Negative) mg/dL Urine Glucose (UA) >=500 (Negative) mg/dL Urine Ketones Neg (Negative) mg/dL Urine Blood Sm (Negative) Urine Nitrite Neg (Negative) Urine Bilirubin Neg (Negative) Urine Urobilinogen < 2.0 (<2.0) mg/dL Ur Leukocyte Esterase Neg (Negative) Urine WBC (Auto) < 1.0 (0.0-6.0) /HPF Urine RBC (Auto) < 1.0 (0.0-6.0) /HPF Salicylates (2.8-20.0) mg/dL Urine Opiates Screen Negative Urine Methadone Screen Negative Acetaminophen (10.0-30.0) ug/mL Ur Barbiturates Screen Negative Ur Phencyclidine Scrn Negative Ur Amphetamines Screen Negative U Benzodiazepines Scrn Negative Urine Cocaine Screen Negative U Marijuana (THC) Screen Negative Drugs of Abuse Note Disclamer Plasma/Serum Alcohol (0-0.07) % 01/18/22 01/18/22 01/18/22 Range/Units 21:35 21:35 21:35 WBC 6.5 (4.5-11.0) K/mm3 RBC 5.08 H (3.65-5.03) M/mm3 Hgb 16.0 H (11.8-15.2) gm/dl Hct 47.3 H (35.5-45.6) % MCV 93 (84-94) fl MCH 32 (28-32) pg MCHC 34 (32-34) % RDW 12.8 L (13.2-15.2) % Plt Count 276 (140-440) K/mm3 Lymph % (Auto) 39.3 H (13.4-35.0) % [place] % (Auto) 10.5 H (0.0-7.3) % Eos % (Auto) 3.4 (0.0-4.3) % Baso % (Auto) 0.6 (0.0-1.8) % Lymph # (Auto) 2.6 (1.2-5.4) K/mm3 [place] # (Auto) 0.7 (0.0-0.8) K/mm3 Eos # (Auto) 0.2 (0.0-0.4) K/mm3 Baso # (Auto) 0.0 (0.0-0.1) K/mm3 Seg Neutrophils % 46.2 (40.0-70.0) % Seg Neutrophils # 3.0 (1.8-7.7) K/mm3 PT 12.8 (12.2-14.9) Sec. INR 0.87 (0.87-1.13) ABG pH (7.350-7.450) pH Units ABG pCO2 mm Hg ABG pO2 (80.0-90.0) mm Hg ABG HCO3 (20.0-26.0) mmol/L ABG O2 Saturation (95.0-99.0) % ABG O2 Content (0.0-44) ABG Base Excess (-2.0-3.0) mmol/L ABG Hemoglobin (14.0-18.0) gm/dl ABG Carboxyhemoglobin (0.0-5.0) % ABG Methemoglobin (0.0-1.5) % Oxyhemoglobin (95.0-99.0) % FiO2 % Sodium 137 (137-145) mmol/L Potassium 3.5 L (3.6-5.0) mmol/L Chloride 101.3 (98-107) mmol/L Carbon Dioxide 15 L (22-30) mmol/L Anion Gap 24 mmol/L BUN 6 L (9-20) mg/dL Creatinine 0.8 (0.8-1.3) mg/dL Estimated GFR > 60 ml/min BUN/Creatinine Ratio 8 % Glucose 363 H (75-100) mg/dL Ketones Quantitative (Negative) Lactic Acid (0.7-2.0) mmol/L Calcium 9.4 (8.4-10.2) mg/dL Total Bilirubin 0.40 (0.1-1.2) mg/dL AST 12 (5-40) units/L ALT 15 (7-56) units/L Alkaline Phosphatase 72 (35-129) units/L Ammonia (25-60) umol/L Total Creatine Kinase 116 (55-170) units/L Troponin T < 0.010 (0.00-0.029) ng/mL C-Reactive Protein (0.00-1.30) mg/dL NT-Pro-B Natriuret Pep (0-900) pg/mL Total Protein 6.9 (6.3-8.2) g/dL Albumin 4.2 (3.9-5) g/dL Albumin/Globulin Ratio 1.6 % Urine Color (Yellow) Urine Turbidity (Clear) Urine pH (5.0-7.0) Ur Specific [place] (1.003-1.030) Urine Protein (Negative) mg/dL Urine Glucose (UA) (Negative) mg/dL Urine Ketones (Negative) mg/dL Urine Blood (Negative) Urine Nitrite (Negative) Urine Bilirubin (Negative) Urine Urobilinogen (<2.0) mg/dL Ur Leukocyte Esterase (Negative) Urine WBC (Auto) (0.0-6.0) /HPF Urine RBC (Auto) (0.0-6.0) /HPF Salicylates (2.8-20.0) mg/dL Urine Opiates Screen Urine Methadone Screen Acetaminophen (10.0-30.0) ug/mL Ur Barbiturates Screen Ur Phencyclidine Scrn Ur Amphetamines Screen U Benzodiazepines Scrn Urine Cocaine Screen U Marijuana (THC) Screen Drugs of Abuse Note Plasma/Serum Alcohol (0-0.07) % 01/18/22 01/18/22 01/18/22 Range/Units 21:35 21:35 21:35 WBC (4.5-11.0) K/mm3 RBC (3.65-5.03) M/mm3 Hgb (11.8-15.2) gm/dl Hct (35.5-45.6) % MCV (84-94) fl MCH (28-32) pg MCHC (32-34) % RDW (13.2-15.2) % Plt Count (140-440) K/mm3 Lymph % (Auto) (13.4-35.0) % [place] % (Auto) (0.0-7.3) % Eos % (Auto) (0.0-4.3) % Baso % (Auto) (0.0-1.8) % Lymph # (Auto) (1.2-5.4) K/mm3 [place] # (Auto) (0.0-0.8) K/mm3 Eos # (Auto) (0.0-0.4) K/mm3 Baso # (Auto) (0.0-0.1) K/mm3 Seg Neutrophils % (40.0-70.0) % Seg Neutrophils # (1.8-7.7) K/mm3 PT (12.2-14.9) Sec. INR (0.87-1.13) ABG pH (7.350-7.450) pH Units ABG pCO2 mm Hg ABG pO2 (80.0-90.0) mm Hg ABG HCO3 (20.0-26.0) mmol/L ABG O2 Saturation (95.0-99.0) % ABG O2 Content (0.0-44) ABG Base Excess (-2.0-3.0) mmol/L ABG Hemoglobin (14.0-18.0) gm/dl ABG Carboxyhemoglobin (0.0-5.0) % ABG Methemoglobin (0.0-1.5) % Oxyhemoglobin (95.0-99.0) % FiO2 % Sodium (137-145) mmol/L Potassium (3.6-5.0) mmol/L Chloride (98-107) mmol/L Carbon Dioxide (22-30) mmol/L Anion Gap mmol/L BUN (9-20) mg/dL Creatinine (0.8-1.3) mg/dL Estimated GFR ml/min BUN/Creatinine Ratio % Glucose (75-100) mg/dL Ketones Quantitative (Negative) Lactic Acid 4.80 H* (0.7-2.0) mmol/L Calcium (8.4-10.2) mg/dL Total Bilirubin (0.1-1.2) mg/dL AST (5-40) units/L ALT (7-56) units/L Alkaline Phosphatase (35-129) units/L Ammonia 26.0 (25-60) umol/L Total Creatine Kinase (55-170) units/L Troponin T (0.00-0.029) ng/mL C-Reactive Protein (0.00-1.30) mg/dL NT-Pro-B Natriuret Pep (0-900) pg/mL Total Protein (6.3-8.2) g/dL Albumin (3.9-5) g/dL Albumin/Globulin Ratio % Urine Color (Yellow) Urine Turbidity (Clear) Urine pH (5.0-7.0) Ur Specific [place] (1.003-1.030) Urine Protein (Negative) mg/dL Urine Glucose (UA) (Negative) mg/dL Urine Ketones (Negative) mg/dL Urine Blood (Negative) Urine Nitrite (Negative) Urine Bilirubin (Negative) Urine Urobilinogen (<2.0) mg/dL Ur Leukocyte Esterase (Negative) Urine WBC (Auto) (0.0-6.0) /HPF Urine RBC (Auto) (0.0-6.0) /HPF Salicylates < 0.3 L (2.8-20.0) mg/dL Urine Opiates Screen Urine Methadone Screen Acetaminophen (10.0-30.0) ug/mL Ur Barbiturates Screen Ur Phencyclidine Scrn Ur Amphetamines Screen U Benzodiazepines Scrn Urine Cocaine Screen U Marijuana (THC) Screen Drugs of Abuse Note Plasma/Serum Alcohol (0-0.07) % 01/18/22 01/18/22 01/18/22 Range/Units 21:35 21:35 21:35 WBC (4.5-11.0) K/mm3 RBC (3.65-5.03) M/mm3 Hgb (11.8-15.2) gm/dl Hct (35.5-45.6) % MCV (84-94) fl MCH (28-32) pg MCHC (32-34) % RDW (13.2-15.2) % Plt Count (140-440) K/mm3 Lymph % (Auto) (13.4-35.0) % [place] % (Auto) (0.0-7.3) % Eos % (Auto) (0.0-4.3) % Baso % (Auto) (0.0-1.8) % Lymph # (Auto) (1.2-5.4) K/mm3 [place] # (Auto) (0.0-0.8) K/mm3 Eos # (Auto) (0.0-0.4) K/mm3 Baso # (Auto) (0.0-0.1) K/mm3 Seg Neutrophils % (40.0-70.0) % Seg Neutrophils # (1.8-7.7) K/mm3 PT (12.2-14.9) Sec. INR (0.87-1.13) ABG pH (7.350-7.450) pH Units ABG pCO2 mm Hg ABG pO2 (80.0-90.0) mm Hg ABG HCO3 (20.0-26.0) mmol/L ABG O2 Saturation (95.0-99.0) % ABG O2 Content (0.0-44) ABG Base Excess (-2.0-3.0) mmol/L ABG Hemoglobin (14.0-18.0) gm/dl ABG Carboxyhemoglobin (0.0-5.0) % ABG Methemoglobin (0.0-1.5) % Oxyhemoglobin (95.0-99.0) % FiO2 % Sodium (137-145) mmol/L Potassium (3.6-5.0) mmol/L Chloride (98-107) mmol/L Carbon Dioxide (22-30) mmol/L Anion Gap mmol/L BUN (9-20) mg/dL Creatinine (0.8-1.3) mg/dL Estimated GFR ml/min BUN/Creatinine Ratio % Glucose (75-100) mg/dL Ketones Quantitative Negative (Negative) Lactic Acid (0.7-2.0) mmol/L Calcium (8.4-10.2) mg/dL Total Bilirubin (0.1-1.2) mg/dL AST (5-40) units/L ALT (7-56) units/L Alkaline Phosphatase (35-129) units/L Ammonia (25-60) umol/L Total Creatine Kinase (55-170) units/L Troponin T (0.00-0.029) ng/mL C-Reactive Protein 0.50 (0.00-1.30) mg/dL NT-Pro-B Natriuret Pep 40.30 (0-900) pg/mL Total Protein (6.3-8.2) g/dL Albumin (3.9-5) g/dL Albumin/Globulin Ratio % Urine Color (Yellow) Urine Turbidity (Clear) Urine pH (5.0-7.0) Ur Specific [place] (1.003-1.030) Urine Protein (Negative) mg/dL Urine Glucose (UA) (Negative) mg/dL Urine Ketones (Negative) mg/dL Urine Blood (Negative) Urine Nitrite (Negative) Urine Bilirubin (Negative) Urine Urobilinogen (<2.0) mg/dL Ur Leukocyte Esterase (Negative) Urine WBC (Auto) (0.0-6.0) /HPF Urine RBC (Auto) (0.0-6.0) /HPF Salicylates (2.8-20.0) mg/dL Urine Opiates Screen Urine Methadone Screen Acetaminophen 5.0 L (10.0-30.0) ug/mL Ur Barbiturates Screen Ur Phencyclidine Scrn Ur Amphetamines Screen U Benzodiazepines Scrn Urine Cocaine Screen U Marijuana (THC) Screen Drugs of Abuse Note Plasma/Serum Alcohol 0.14 H (0-0.07) % 01/18/22 01/19/22 Range/Units 23:49 03:38 WBC (4.5-11.0) K/mm3 RBC (3.65-5.03) M/mm3 Hgb (11.8-15.2) gm/dl Hct (35.5-45.6) % MCV (84-94) fl MCH (28-32) pg MCHC (32-34) % RDW (13.2-15.2) % Plt Count (140-440) K/mm3 Lymph % (Auto) (13.4-35.0) % [place] % (Auto) (0.0-7.3) % Eos % (Auto) (0.0-4.3) % Baso % (Auto) (0.0-1.8) % Lymph # (Auto) (1.2-5.4) K/mm3 [place] # (Auto) (0.0-0.8) K/mm3 Eos # (Auto) (0.0-0.4) K/mm3 Baso # (Auto) (0.0-0.1) K/mm3 Seg Neutrophils % (40.0-70.0) % Seg Neutrophils # (1.8-7.7) K/mm3 PT (12.2-14.9) Sec. INR (0.87-1.13) ABG pH (7.350-7.450) pH Units ABG pCO2 mm Hg ABG pO2 (80.0-90.0) mm Hg ABG HCO3 (20.0-26.0) mmol/L ABG O2 Saturation (95.0-99.0) % ABG O2 Content (0.0-44) ABG Base Excess (-2.0-3.0) mmol/L ABG Hemoglobin (14.0-18.0) gm/dl ABG Carboxyhemoglobin (0.0-5.0) % ABG Methemoglobin (0.0-1.5) % Oxyhemoglobin (95.0-99.0) % FiO2 % Sodium (137-145) mmol/L Potassium (3.6-5.0) mmol/L Chloride (98-107) mmol/L Carbon Dioxide (22-30) mmol/L Anion Gap mmol/L BUN (9-20) mg/dL Creatinine (0.8-1.3) mg/dL Estimated GFR ml/min BUN/Creatinine Ratio % Glucose (75-100) mg/dL Ketones Quantitative (Negative) Lactic Acid 3.20 H* 1.70 (0.7-2.0) mmol/L Calcium (8.4-10.2) mg/dL Total Bilirubin (0.1-1.2) mg/dL AST (5-40) units/L ALT (7-56) units/L Alkaline Phosphatase (35-129) units/L Ammonia (25-60) umol/L Total Creatine Kinase (55-170) units/L Troponin T (0.00-0.029) ng/mL C-Reactive Protein (0.00-1.30) mg/dL NT-Pro-B Natriuret Pep (0-900) pg/mL Total Protein (6.3-8.2) g/dL Albumin (3.9-5) g/dL Albumin/Globulin Ratio % Urine Color (Yellow) Urine Turbidity (Clear) Urine pH (5.0-7.0) Ur Specific [place] (1.003-1.030) Urine Protein (Negative) mg/dL Urine Glucose (UA) (Negative) mg/dL Urine Ketones (Negative) mg/dL Urine Blood (Negative) Urine Nitrite (Negative) Urine Bilirubin (Negative) Urine Urobilinogen (<2.0) mg/dL Ur Leukocyte Esterase (Negative) Urine WBC (Auto) (0.0-6.0) /HPF Urine RBC (Auto) (0.0-6.0) /HPF Salicylates (2.8-20.0) mg/dL Urine Opiates Screen Urine Methadone Screen Acetaminophen (10.0-30.0) ug/mL Ur Barbiturates Screen Ur Phencyclidine Scrn Ur Amphetamines Screen U Benzodiazepines Scrn Urine Cocaine Screen U Marijuana (THC) Screen Drugs of Abuse Note Plasma/Serum Alcohol (0-0.07) % - EKG Data -: EKG Interpreted by Me EKG shows normal: sinus rhythm Interpretation: no acute changes - Radiology Data Radiology results: report reviewed, image reviewed - Medical Decision Making work up showed etoh , fluids given BS was 459 2 litres of fluid given back to baseline , daughter in law and son informed us that [facility] and he couldn't see him and has been drinking and expressed that he wants to harm himself , will 1013 and admit to psych Critical care attestation.: If time is entered above; I have spent that time in minutes in the direct care of this critically ill patient, excluding procedure time. ED Disposition Clinical Impression: Hyperglycemia, Alcohol abuse, Suicidal ideation Disposition: HOME / SELF CARE / HOMELESS Is pt being admited?: No Does the pt Need Aspirin: No Condition: Stable Additional Instructions: Professional and Agency Contacts To help Resolve Crises(29/03) [place] Crisis Line: Suicide Prevention Line: Crisis Text Line: Text START to 395019 Emergency: 911 Outpatient COMMUNITY Behavioral Health Resources: CYNTHIA: [facility] [address] [place], [place] [address] LEBEC: [facility] [address] [place] [address] [facility] - [address] [place] [id number] Wednesday thru Wednesday - 8am - 5pm [facility] Address: [address] [place] [address] LILY: [facility] Address: [address] [place] [address] Wednesday thru Wednesday- 7am-2pm [facility] Address: [address] [place] [address] Wednesday thru Wednesday: 8:30AM-5PM In case of an emergency, please contact the following numbers: [place] Crisis and Access Line: Number: Crisis Text Line: (Text START) Number: 373208 Suicide Prevention Line: Number: Emergency Number: 911 SUBSTANCE ABUSE PROGRAMS: [facility]: Location: [place], [place] [facility] Address: [address] [place] [address] [id number] [facility]: Address: [address] [place] [address] [facility]: Address: [address] [place] [address] [facility]: Address: [address] [place] [address] [facility] Address: [address] [place] [address]. Please contact above numbers to attempt placement into free based program. Medicaid Programs: [facility]: Address: [address] [place] [address] [facility]: Address: [address] [place] [address] OUTPATIENT MENTAL HEALTH RESOURCES [facility], [address] [place] [address] [facility] Loyda Villegas MD: [address] [facility] [address] [place] [address] [facility]: [address] [place] [address] [place] [address] [place] [address] [phone] [facility]: [address] [facility] [address] [place] [address] [phone] [facility]: [address] [facility] [address] [facility] [id number] [facility]: [address] [place], [place] Guilherme Perkins MD: [address] [facility] [id number] [facility]: [address] [place], [place] [id number] [phone] [place] CRISIS AND ACCESS LINE: * Referrals: SHERMAN HUDSON MD [Primary Care Provider] - 3-5 Days
--- NOTE | 2022-01-19 00:22 | Cat Scan Report ---
CT HEAD WITHOUT CONTRAST INDICATION / CLINICAL INFORMATION: Altered Mental Status. TECHNIQUE: All CT scans at this location are performed using CT dose reduction for ALARA by means of automated exposure control. COMPARISON: None available. FINDINGS: BRAIN PARENCHYMA: No acute intracranial hemorrhage. No evidence of recent infarct. No mass effect or midline shift. VENTRICULAR SYSTEM/EXTRA-AXIAL SPACES: Ventricles are normal for age. No extra-axial fluid collection . ORBITS: Normal as visualized. SKELETAL SYSTEM/SOFT TISSUES: Normal bones and soft tissues. PARANASAL SINUSES/MASTOID AIR CELLS: No significant abnormality. ADDITIONAL FINDINGS: None. IMPRESSION: 1. No acute intracranial abnormality. Signer Name: Alec Alejandre MD Signed: 01/19/2022 12:18 AM Workstation Name: [id number]
--- NOTE | 2022-01-19 13:10 | Consultation ---
History of Present Illness - Reason for Consult Consult date: 01/19/22 Reason for consult: Mental health evaluation - History of Present Psychiatric Illness The patient is a 57 year old male with no psychiatric history who presents to the ED with AMS. Assessment was conducted via diplomatic interpreter/translator # [id number]. In my encounter with the patient, he is calm alert and oriented x2. The patient reports that he was in the process of washing his car when he fell; he reports consuming 2 cans of beer prior to that. The patient denies daily alcohol use and denies being depressed. The patient denies any current suicidal/homicidal ideation and denies hallucinations. PAST PSYCHIATRIC HISTORY: Diagnoses: Denies Suicide attempts or Self-harm behavior: Denies Prior psychiatric hospitalizations: Denies Substance Abuse history:Alcohol Previous psychiatric medications tried: Denies Outpatient treatment: Denies PAST MEDICAL HISTORY: None reported Family Psychiatric History: None reported SOCIAL HISTORY Marital Status: Living Arrangements: Lives Employment Status: employed Access to guns/weapons: Denies Education:7th grade History of Abuse: Denies Legal History:Unknown REVIEW OF SYSTEMS Constitutional: Negative for weight loss ENT: Negative for stridor Respiratory: Negative for cough or hemoptysis All other systems reviewed and are negative MENTAL STATUS EXAMINATION General Appearance: Dressed appropriately, Behavior: calm and cooperative Mood: ok Affect and affective range: congruent with mood Thought Process: Goal directed Thought content:Denies Speech: Normal Suicidal Ideation: Denies Homicidal Ideation: Denies Hallucinations: Denies Delusions:None Insight and Judgment:Limited insight and judgment Memory: Limited Attention: Distracted Orientation: Alert, oriented Assessment (1)Mental health evaluation (2) Continue home meds. Treatment Plan DC [id number] Continue home meds Sitter: Defer to primary Medical: Per primary Disposition:Do not recommend acute psychiatric inpatient treatment. Assess will provide patient with psychiatric outpatient resources and safety plan. Will sign off. Thank you for this consult. Case staffed with Dr. March Medications and Allergies Medications and Allergies Allergies Allergy/AdvReac Type Severity Reaction Status Date / Time aspirin AdvReac Severe Swelling Verified 02/13/21 17:28 Home Medications Medication Instructions Recorded Confirmed Last Taken Type Benzonatate [Tessalon Perles] 100 mg PO Q8HR PRN #20 capsule 05/31/19 Unknown Rx Pantoprazole [Protonix] 40 mg PO QDAY #30 tablet 12/27/19 Unknown Rx amLODIPine 10 mg PO DAILY #30 12/27/19 Unknown Rx metFORMIN [Glucophage] 850 mg PO BIDDIAB #60 tablet 12/27/19 Unknown Rx Mental Status Exam - Vital signs Last Vital Signs Temp 98.9 F 01/18/22 20:37 Pulse 100 H 01/19/22 13:00 Resp 15 01/19/22 13:00 BP 102/55 01/19/22 13:00 Pulse Ox 95 01/19/22 13:00 Results Result Diagrams: 01/18/22 21:35 01/18/22 21:35 Abnormal lab results 01/18/22 01/18/22 01/18/22 Range/Units 20:20 21:35 21:35 RBC 5.08 H (3.65-5.03) M/mm3 Hgb 16.0 H (11.8-15.2) gm/dl Hct 47.3 H (35.5-45.6) % RDW 12.8 L (13.2-15.2) % Lymph % (Auto) 39.3 H (13.4-35.0) % [place] % (Auto) 10.5 H (0.0-7.3) % ABG pH 7.559 H (7.350-7.450) pH Units ABG pO2 117.1 H (80.0-90.0) mm Hg ABG HCO3 12.9 L (20.0-26.0) mmol/L ABG Base Excess -5.1 L (-2.0-3.0) mmol/L Oxyhemoglobin 93.6 L (95.0-99.0) % Potassium 3.5 L (3.6-5.0) mmol/L Carbon Dioxide 15 L (22-30) mmol/L BUN 6 L (9-20) mg/dL Glucose 363 H (75-100) mg/dL Lactic Acid (0.7-2.0) mmol/L Salicylates (2.8-20.0) mg/dL Acetaminophen (10.0-30.0) ug/mL Plasma/Serum Alcohol (0-0.07) % 01/18/22 01/18/22 01/18/22 Range/Units 21:35 21:35 21:35 RBC (3.65-5.03) M/mm3 Hgb (11.8-15.2) gm/dl Hct (35.5-45.6) % RDW (13.2-15.2) % Lymph % (Auto) (13.4-35.0) % [place] % (Auto) (0.0-7.3) % ABG pH (7.350-7.450) pH Units ABG pO2 (80.0-90.0) mm Hg ABG HCO3 (20.0-26.0) mmol/L ABG Base Excess (-2.0-3.0) mmol/L Oxyhemoglobin (95.0-99.0) % Potassium (3.6-5.0) mmol/L Carbon Dioxide (22-30) mmol/L BUN (9-20) mg/dL Glucose (75-100) mg/dL Lactic Acid 4.80 H* (0.7-2.0) mmol/L Salicylates < 0.3 L (2.8-20.0) mg/dL Acetaminophen 5.0 L (10.0-30.0) ug/mL Plasma/Serum Alcohol (0-0.07) % 01/18/22 01/18/22 Range/Units 21:35 23:49 RBC (3.65-5.03) M/mm3 Hgb (11.8-15.2) gm/dl Hct (35.5-45.6) % RDW (13.2-15.2) % Lymph % (Auto) (13.4-35.0) % [place] % (Auto) (0.0-7.3) % ABG pH (7.350-7.450) pH Units ABG pO2 (80.0-90.0) mm Hg ABG HCO3 (20.0-26.0) mmol/L ABG Base Excess (-2.0-3.0) mmol/L Oxyhemoglobin (95.0-99.0) % Potassium (3.6-5.0) mmol/L Carbon Dioxide (22-30) mmol/L BUN (9-20) mg/dL Glucose (75-100) mg/dL Lactic Acid 3.20 H* (0.7-2.0) mmol/L Salicylates (2.8-20.0) mg/dL Acetaminophen (10.0-30.0) ug/mL Plasma/Serum Alcohol 0.14 H (0-0.07) % All other labs normal.
[2022-01-19 16:20] VITALS: BP 126/72
--- NOTE | 2022-01-21 10:03 | Electrocardiograph Report ---
[facility] Test Date: 2022-01-18 Test Time: 20:24:16 Pat Name: REYNA GANDARA Department: Room: Gender: M Credit Risk Analyst: LAMBERTO : 1965 Requested By: ROC POLANCO Order Number: [id number] Reading MD: Wiliam Quezada Measurements Intervals [place] Rate: 95 P: 63 NE: 161 QRS: 47 QRSD: 81 T: 61 QT: 330 QTc: 414 Interpretive Statements Sinus rhythm No previous ECG available for comparison Electronically Signed On 01-21-2022 10:02:50 EDT by Wiliam Quezada
--- NOTE | 2022-01-21 10:12 | Electrocardiograph Report ---
[facility] Test Date: 2022-01-18 Test Time: 23:28:32 Pat Name: REYNA GANDARA Department: Room: Gender: M Irrigator Valve Pipe: JULIO CESAR : 1965 Requested By: ROC POLANCO Order Number: [id number] Reading MD: Wiliam Quezada Measurements Intervals [place] Rate: 83 P: 72 IN: 158 QRS: 66 QRSD: 88 T: 56 QT: 356 QTc: 420 Interpretive Statements Sinus rhythm Compared to ECG 01/18/2022 20:24:16 No significant changes Electronically Signed On 01-21-2022 10:11:26 EDT by Wiliam Quezada
== END 2022-01-19 16:22 | disposition home or self-care (01) ==
LOC: ED 20:12
DX: R45.851 Suicidal ideations (principal); E11.65 Type 2 diabetes mellitus with hyperglycemia; F10.10 Alcohol abuse, uncomplicated; I10 Essential (primary) hypertension; Z98.890 Other specified postprocedural states; Z79.899 Other long term (current) drug therapy
CPT/HCPCS: 36415; 70450; 71045; 80053; 80307; 81001; 82010; 82140; 82550; 82803; 83880; 84484; 85025; 85610; 86140; 87040; 93005; 96360; 96361; 99284; J7030; 80320; G0480

== ENCOUNTER 2022-02-11 22:00 | Emergency (ER) | payer BC, OTHER ==
[2022-02-11 23:45] VITALS: BP 98/58
--- NOTE | 2022-02-12 00:12 | XRay Report ---
LEFT TIBIA-FIBULA 2 VIEW(S) INDICATION / CLINICAL INFORMATION: FALL COMPARISON: None available. FINDINGS: BONES / JOINT(S): No acute fracture or subluxation. No significant arthritis. SOFT TISSUES: No significant abnormality. ADDITIONAL FINDINGS: None. IMPRESSION: 1. No acute findings. Signer Name: Wai Ruffin MD Signed: 02/12/2022 12:08 AM Workstation Name: [id number]
== END 2022-02-12 01:00 | disposition left against medical advice (07) ==
LOC: ED 22:00
DX: M79.605 Pain in left leg (principal); Z53.21 Procedure and treatment not carried out due to patient leaving prior to being seen by health care provider

== ENCOUNTER 2022-04-27 13:20 | Observation (INO) | payer OTHER ==
--- NOTE | 2022-04-27 13:29 | Emergency Department Report ---
Blank Doc - Documentation Documentation: 57-year-old male that presents with chest pain and shortness of breath that st arted today. History of PR. 1- This is a initial triage assessment/medical screening only. Full assessment and work-up will be completed once the patient is in proper hospital gown, ED bed and in a private room setting. This initial assessment/diagnostic orders/clinical plan/ treatment(s) is/are subject to change based on pt's health status, clinical progression and re-assessment by fellow clinical providers in the ED. Further treatment and workup at subsequent clinical providers discretion. Patient/guardians urged not to elope from ED as their condition may be serious if not clinically assessed and managed. 2-cardiac work-up The patient was evaluated in the emergency department for symptoms described in the history of present illness. He/she was evaluated in the context of the [facility] COVID-19 pandemic, which necessitated consideration that the patient might be at risk for infection with the virus that causes COVID-19. Institutional protocols and algorithms that pertain to the evaluation of patients at risk for COVID-19 are in a state of rapid change based on information released by regulatory bodies including the CDC and federal and state organizations. These policies and algorithms were followed during the patient's care in the emergency department. Please note that these policies, procedures and recommendations changed on a rapid basis.
[2022-04-27 13:52] LABS: Basophils # (Auto) 0.1 K/mm3 (0.0-0.1); Basophils % (Auto) 0.8 % (0.0-1.8); Eosinophils # (Auto) 0.3 K/mm3 (0.0-0.4); Eosinophils % (Auto) 3.4 % (0.0-4.3); Hematocrit 44.7 % (35.5-45.6); Lymphocytes # (Auto) 1.7 K/mm3 (1.2-5.4); Lymphocytes % (Auto) 21.9 % (13.4-35.0); Mean Corpuscular HGB Conc 34 % (32-34); Mean Corpuscular Volume 93 fl (84-94); Monocytes # (Auto) 0.8 K/mm3 (0.0-0.8); Platelet Count 506 K/mm3 (140-440); Red Blood Count 4.82 M/mm3 (3.65-5.03); Red Cell Distribution Width 12.9 % (13.2-15.2)
--- NOTE | 2022-04-27 13:56 | XRay Report ---
. CHEST 2 VIEWS INDICATION / CLINICAL INFORMATION: Chest Pain. COMPARISON: 01/18/2022 FINDINGS: SUPPORT DEVICES: None. HEART / MEDIASTINUM: No significant abnormality. LUNGS / PLEURA: No significant pulmonary or pleural abnormality. No pneumothorax. ADDITIONAL FINDINGS: No significant additional findings. IMPRESSION: 1. No acute findings. Signer Name: Jimmy Giraldo MD Signed: 04/27/2022 1:52 PM Workstation Name: [id number]
[2022-04-27 13:58] LABS: INR 0.97 (0.87-1.13)
[2022-04-27 13:59] LABS: Partial Thromboplastin Time 35.5 Sec. (24.2-36.6)
[2022-04-27 14:14] LABS: Alanine Aminotransferase 16 units/L (7-56); Albumin 4.1 g/dL (3.9-5); BUN/Creatinine Ratio 13; Blood Urea Nitrogen 10 mg/dL (9-20); Calcium 10.6 mg/dL (8.4-10.2); Hemolysis Index 6
[2022-04-27 14:27] LABS: Chol/HDL Ratio 4.34 %; HDL Cholesterol 29 mg/dL (40-59); LDL Cholesterol,Direct 79 mg/dL (50-130)
--- NOTE | 2022-04-28 08:29 | Electrocardiograph Report ---
[facility] Test Date: 2022-04-27 Test Time: 13:20:18 Pat Name: REYNA GANDARA Department: Room: Gender: M Fisher Sponge Hooking: NILDA : 1965 Requested By: ERICK ARNOLD Order Number: [id number] Reading MD: Edin Cardozo Measurements Intervals [place] Rate: 99 P: 54 RI: 149 QRS: 15 QRSD: 78 T: -42 QT: 332 QTc: 426 Interpretive Statements Sinus rhythm ABNORMAL T WAVES, INFERIOR LEADS Compared to ECG 01/18/2022 23:28:32 Electronically Signed On 04-28-2022 8:29:43 EDT by Edin Cardozo
[2022-04-28] MEDS ORDERED: ASPIRIN 325 MG TAB PO ONE (13:48)
--- NOTE | 2022-04-28 14:10 | Emergency Department Report ---
ED Chest Pain HPI - General Chief Complaint: Chest Pain Stated Complaint: CHEST PAIN Time Seen by Provider: 04/27/22 13:21 Source: patient Mode of arrival: Ambulatory Limitations: Language Barrier (Global Chief Experience Officer used, Yoruba-speaking) - History of Present Illness Initial Comments: 57-year-old male with a past medical history of CAD with 3 stents recently placed during April 10 admission in [facility], diabetes, smoking history (quit earlier this month), hypertension, and hyperlipidemia presents to the hospital complaining of intermittent chest pain since yesterday afternoon.. Pain occurred at rest without aggravating or alleviating factors reported. Patient complains of chest pressure, shortness of breath, diaphoresis without nausea and vomiting. This pain is similar to his previous pain when he is admitted to a hospital in [place] earlier this month. Patient was told that he had residual disease and might require an additional intervention. He actually saw in [place] heart sales rep in the office yesterday morning but was pain-free at that time. Patient is compliant with his medications but did not have a dose of meds today since he has been in the ED greater than 24 hours. Patient has mild elevation in troponin x2 yesterday which is relatively stable. Patient states he has been pain-free since 1:30 PM yesterday. Patient's current meds include amlodipine 10 mg daily Metformin 1000 mg twice daily Aspirin 81 mg daily Plavix 75 mg daily Atorvastatin Severity scale (0 -10): 0 - Related Data Previous Rx's Medication Instructions Recorded Last Taken Type Benzonatate [Tessalon Perles] 100 mg PO Q8HR PRN #20 capsule 05/31/19 Unknown Rx Pantoprazole [Protonix] 40 mg PO QDAY #30 tablet 12/27/19 Unknown Rx amLODIPine 10 mg PO DAILY #30 12/27/19 Unknown Rx metFORMIN [Glucophage] 850 mg PO BIDDIAB #60 tablet 12/27/19 Unknown Rx Allergies Allergy/AdvReac Type Severity Reaction Status Date / Time No Known Allergies Allergy Verified 04/28/22 15:12 Heart Score - HEART Score History: Moderately suspicious EKG: Non-specific Age: 45-65 Risk factors: > 3 risk factors or hx of atherosclerotic disease Troponin: 1-3x normal limit HEART Score: 6 - EKG Read Time Time EKG Completed: 13:20 EKG Read Time: 13:22 ED Review of Systems ROS: Stated complaint: CHEST PAIN Other details as noted in HPI Comment: All other systems reviewed and negative ED Past Medical Hx - Past Medical History Hx Hypertension: Yes Hx Diabetes: Yes Additional medical history: Hyperlipidemia, [place] - Surgical History Hx Appendectomy: Yes - Social History Smoking Status: Never Smoker Substance Use Type: None - Medications Home Medications: Home Medications Medication Instructions Recorded Confirmed Last Taken Type Benzonatate [Tessalon Perles] 100 mg PO Q8HR PRN #20 capsule 05/31/19 Unknown Rx Pantoprazole [Protonix] 40 mg PO QDAY #30 tablet 12/27/19 Unknown Rx amLODIPine 10 mg PO DAILY #30 12/27/19 Unknown Rx metFORMIN [Glucophage] 850 mg PO BIDDIAB #60 tablet 12/27/19 Unknown Rx ED Physical Exam - General Limitations: No Limitations - Other Other exam information: General: No acute distress Head: Atraumatic Eyes: normal appearance ENT: Moist mucous membranes Neck: Normal appearance, no midline tenderness Chest: Clear to auscultation bilaterally CV: Regular rate and rhythm Abdomen: Soft, normal bowel sounds, nontender, nondistended, no rebound or guarding Back: Normal inspection Extremity: Normal inspection, full range of motion, no calf tenderness or leg edema Neuro: Alert O x 3, no facial asymmetry, speech clear, no gross motor sensory deficit Psych: Appropriate behavior Skin: No rash ED Course Vital Signs 04/27/22 04/27/22 04/28/22 13:32 23:38 13:25 Temperature 98.9 F 98.3 F Pulse Rate 102 H 94 H 97 H Respiratory 14 18 18 Rate Blood Pressure 112/63 128/71 101/67 [Right] O2 Sat by Pulse 98 98 97 Oximetry 04/28/22 15:28 Temperature Pulse Rate 87 Respiratory 18 Rate Blood Pressure 113/68 [Right] O2 Sat by Pulse 98 Oximetry - Consultations Consultation #1: 04/28/22 14:09 Secondary unable to get a hold of on-call sales rep with [facility] via answering service. It is currently a busy signal at [phone] on answering service line. I called Dr Quezada and call went Straight to voicemail. I was able to get a hold of Dr. Saji Kemp who was able to advise and provide consultation and confirm that on-call physician is Dr. Quezada. He requests admission to the hospital for cardiac JIMMY score - Jimmy Score Age > 65: (0) No Aspirin use within the Past 7 Days: (1) Yes 3 or more CAD Risk Factors: (1) Yes 2 or more Angina events in past 24 hrs: (1) Yes Known CAD with more than 50% Stenosis: (1) Yes Elevated Cardiac Markers: (1) Yes ST Deviation Greater than 0.5mm: (0) No JIMMY Score: 5 ED Medical Decision Making - Lab Data Result diagrams: 04/27/22 13:31 04/27/22 13:31 Lab Results 04/27/22 04/27/22 04/27/22 Range/Units 13:31 13:31 13:31 WBC 8.0 (4.5-11.0) K/mm3 RBC 4.82 (3.65-5.03) M/mm3 Hgb 15.0 (11.8-15.2) gm/dl Hct 44.7 (35.5-45.6) % MCV 93 (84-94) fl MCH 31 (28-32) pg MCHC 34 (32-34) % RDW 12.9 L (13.2-15.2) % Plt Count 506 H (140-440) K/mm3 Lymph % (Auto) 21.9 (13.4-35.0) % [place] % (Auto) 10.0 H (0.0-7.3) % Eos % (Auto) 3.4 (0.0-4.3) % Baso % (Auto) 0.8 (0.0-1.8) % Lymph # (Auto) 1.7 (1.2-5.4) K/mm3 [place] # (Auto) 0.8 (0.0-0.8) K/mm3 Eos # (Auto) 0.3 (0.0-0.4) K/mm3 Baso # (Auto) 0.1 (0.0-0.1) K/mm3 Seg Neutrophils % 63.9 (40.0-70.0) % Seg Neutrophils # 5.1 (1.8-7.7) K/mm3 PT 13.9 (12.2-14.9) Sec. INR 0.97 (0.87-1.13) APTT 35.5 (24.2-36.6) Sec. Sodium 135 L (137-145) mmol/L Potassium 4.5 (3.6-5.0) mmol/L Chloride 97.4 L (98-107) mmol/L Carbon Dioxide 25 (22-30) mmol/L Anion Gap 17 mmol/L BUN 10 (9-20) mg/dL Creatinine 0.8 (0.8-1.3) mg/dL Estimated GFR > 60 ml/min BUN/Creatinine Ratio 13 % Glucose 150 H (75-100) mg/dL Calcium 10.6 H (8.4-10.2) mg/dL Magnesium 1.80 (1.7-2.3) mg/dL Total Bilirubin 0.20 (0.1-1.2) mg/dL AST 9 (5-40) units/L ALT 16 (7-56) units/L Alkaline Phosphatase 81 (35-129) units/L Troponin T 0.085 H (0.00-0.029) ng/mL Total Protein 7.0 (6.3-8.2) g/dL Albumin 4.1 (3.9-5) g/dL Albumin/Globulin Ratio 1.4 % Triglycerides 156 H (2-149) mg/dL Cholesterol 126 (50-199) mg/dL LDL Cholesterol Direct 79 (50-130) mg/dL HDL Cholesterol 29 L (40-59) mg/dL Cholesterol/HDL Ratio 4.34 % 04/27/22 04/28/22 Range/Units 16:07 13:15 WBC (4.5-11.0) K/mm3 RBC (3.65-5.03) M/mm3 Hgb (11.8-15.2) gm/dl Hct (35.5-45.6) % MCV (84-94) fl MCH (28-32) pg MCHC (32-34) % RDW (13.2-15.2) % Plt Count (140-440) K/mm3 Lymph % (Auto) (13.4-35.0) % [place] % (Auto) (0.0-7.3) % Eos % (Auto) (0.0-4.3) % Baso % (Auto) (0.0-1.8) % Lymph # (Auto) (1.2-5.4) K/mm3 Bryan # (Auto) (0.0-0.8) K/mm3 Eos # (Auto) (0.0-0.4) K/mm3 Baso # (Auto) (0.0-0.1) K/mm3 Seg Neutrophils % (40.0-70.0) % Seg Neutrophils # (1.8-7.7) K/mm3 PT (12.2-14.9) Sec. INR (0.87-1.13) APTT (24.2-36.6) Sec. Sodium (137-145) mmol/L Potassium (3.6-5.0) mmol/L Chloride (98-107) mmol/L Carbon Dioxide (22-30) mmol/L Anion Gap mmol/L BUN (9-20) mg/dL Creatinine (0.8-1.3) mg/dL Estimated GFR ml/min BUN/Creatinine Ratio % Glucose (75-100) mg/dL Calcium (8.4-10.2) mg/dL Magnesium (1.7-2.3) mg/dL Total Bilirubin (0.1-1.2) mg/dL AST (5-40) units/L ALT (7-56) units/L Alkaline Phosphatase (35-129) units/L Troponin T 0.081 H 0.066 H (0.00-0.029) ng/mL Total Protein (6.3-8.2) g/dL Albumin (3.9-5) g/dL Albumin/Globulin Ratio % Triglycerides (2-149) mg/dL Cholesterol (50-199) mg/dL LDL Cholesterol Direct (50-130) mg/dL HDL Cholesterol (40-59) mg/dL Cholesterol/HDL Ratio % - EKG Data -: EKG Interpreted by Ar EKG shows normal: sinus rhythm, ST-T waves (Inferior T wave inversions. No ST elevation,. Stable EKG x2) Rate: normal - Radiology Data Radiology results: report reviewed . CHEST 2 VIEWS INDICATION / CLINICAL INFORMATION: Chest Pain. COMPARISON: 01/18/2022 FINDINGS: SUPPORT DEVICES: None. HEART / MEDIASTINUM: No significant abnormality. LUNGS / PLEURA: No significant pulmonary or pleural abnormality. No pneumotho rax. ADDITIONAL FINDINGS: No significant additional findings. IMPRESSION: 1. No acute findings. - Medical Decision Making 57-year-old male with a past medical history of CAD with stent and multiple cardiac risk factors presents to the hospital with chest pressure similar to previous symptoms when he required stent placement earlier this month. Patient has mild troponin elevation which might be secondary to residual troponin elevation secondary to recent KS. Patient has EKG changes compared to May EKG on record however, I do not have an EKG since his [place] available for comparison. EKG stable x2. Troponin stable x2 but mildly elevated. Patient is pain-free. Case dean with sales rep. Patient provided a dose of aspirin and Plavix in the ED. Hospitalist will admit Critical Care Time: No Critical care attestation.: If time is entered above; I have spent that time in minutes in the direct care of this critically ill patient, excluding procedure time. ED Disposition Clinical Impression: Hypertension, T2DM (type 2 diabetes mellitus), Unstable angina, Elevated troponin Disposition: ADMITTED INPATIENT Is pt being admited?: Yes Does the pt Need Aspirin: Yes Condition: Stable Time of Disposition: 14:49 (Dr kelsey/[facility])
[2022-04-28] MEDS ORDERED: CLOPIDOGREL 75 MG TAB PO ONE (14:15)
[2022-04-28] MEDS ORDERED: ACETAMINOPHEN 325 MG TAB PO PRN ×2 (14:49→16:17)
[2022-04-28] MEDS ORDERED: ONDANSETRON 4 MG/2 ML INJ IV PRN ×2 (14:49→16:17)
[2022-04-28] MEDS ORDERED: MORPHINE 2 MG/1 ML INJ IV PRN (14:50)
[2022-04-28] MEDS ORDERED: METOCLOPRAMIDE 10 MG/2 ML INJ IV PRN (16:17)
[2022-04-28] MEDS ORDERED: oxyCODONE /ACETAMINOPHEN 5-325MG TAB PO PRN (16:17)
--- NOTE | 2022-04-28 16:17 | History and Physical Report ---
History of Present Illness Date of examination: 04/28/22 Date of admission: 04/28/22 14:49 Chief complaint: Intermittent chest pain since yesterday afternoon History of present illness: 57-year-old male with history of coronary artery disease, hypertension, T2DM and GERD comes in for intermittent chest pain since yesterday afternoon. Chest pain is about 6 on a scale of 1-10. Exertion is a precipitating factor. Patient had recently had 3 stents placed on April 10 in [facility]. Patient was a heavy smoker ~quit smoking since April 10. Chest pain is exacerbated by exertion and relieved by rest. No radiation. No shortness of breath. No diaphoresis. No nausea or vomiting. Heart Score - HEART Score History: Moderately suspicious EKG: Non-specific Age: 45-65 Risk factors: > 3 risk factors or hx of atherosclerotic disease Troponin: 1-3x normal limit HEART Score: 6 - EKG Read Time Time EKG Completed: 13:20 EKG Read Time: 13:22 - Past Medical History --Hypertension: Yes --Diabetes: Yes --Additional medical history: Hyperlipidemia, [place] - Surgical History --Appendectomy: Yes - Social History --Smoking Status: Never Smoker --Substance Use Type: None - Medications --Home Medications: Home Medications Medication Instructions Recorded Confirmed Last Taken Type Benzonatate [Tessalon Perles] 100 mg PO Q8HR PRN #20 capsule 05/31/19 Unknown R x Pantoprazole [Protonix] 40 mg PO QDAY #30 tablet 12/27/19 Unknown Rx amLODIPine 10 mg PO DAILY #30 12/27/19 Unknown Rx metFORMIN [Glucophage] 850 mg PO BIDDIAB #60 tablet 12/27/19 Unknown Rx Review of Systems ROS: Stated complaint: CHEST PAIN Other details as noted in HPI Comment: All other systems reviewed and negative Medications and Allergies Allergies Allergy/AdvReac Type Severity Reaction Status Date / Time No Known Allergies Allergy Verified 04/28/22 15:12 Home Medications Medication Instructions Recorded Confirmed Last Taken Type Benzonatate [Tessalon Perles] 100 mg PO Q8HR PRN #20 capsule 05/31/19 Unknown Rx Pantoprazole [Protonix] 40 mg PO QDAY #30 tablet 12/27/19 Unknown Rx amLODIPine 10 mg PO DAILY #30 12/27/19 Unknown Rx metFORMIN [Glucophage] 850 mg PO BIDDIAB #60 tablet 12/27/19 Unknown Rx Active Meds: Active Medications Acetaminophen (Acetaminophen 325 Mg Tab) 650 mg PO Q4H PRN PRN Reason: Pain MILD(1-3)/Fever >100.5/RICHARDS Morphine Sulfate (Morphine 2 Mg/1 Ml Inj) 2 mg IV Q4H PRN PRN Reason: Pain, Moderate (4-6) Ondansetron HCl (Ondansetron 4 Mg/2 Ml Inj) 4 mg IV Q8H PRN PRN Reason: Nausea And Vomiting Sodium Chloride (Sodium Chloride 0.9% 10 Ml Flush Syringe) 10 ml IV BID ALEC Sodium Chloride (Sodium Chloride 0.9% 10 Ml Flush Syringe) 10 ml IV PRN PRN PRN Reason: LINE FLUSH Exam - Constitutional Vitals: Temp Pulse Resp BP Pulse Ox 98.3 F 87 18 113/68 98 04/27/22 23:38 04/28/22 15:28 04/28/22 15:28 04/28/22 15:28 04/28/22 15:28 General appearance: Present: no acute distress, well-nourished - EENT Eyes: Present: PERRL ENT: hearing intact, clear oral mucosa - Neck Neck: Present: supple, normal ROM - Respiratory Respiratory effort: normal Respiratory: bilateral: CTA - Cardiovascular Heart rate: 78 Rhythm: regular Heart Sounds: Present: S1 & S2. Absent: rub, click - Extremities Extremities: no ischemia, pulses intact, pulses symmetrical, No edema Peripheral Pulses: within normal limits - Abdominal General gastrointestinal: Present: soft, non-tender, non-distended, normal bowel sounds Male genitourinary: Present: normal - Integumentary Integumentary: Present: clear, warm, dry - Musculoskeletal Musculoskeletal: gait normal, strength equal bilaterally - Psychiatric Psychiatric: appropriate mood/affect, intact judgment & insight - Neurologic Neurologic: CNII-XII intact, moves all extremities - Allied Health Allied health notes reviewed: nursing, case management HEART Score - HEART Score EKG: Non-specific Age: 45-65 Risk factors: > 3 risk factors or hx of atherosclerotic disease Troponin: Troponin T 0.066 ng/mL (0.00-0.029) H 04/28/22 13:15 Troponin: 1-3x normal limit Results - Labs CBC & Chem 7: 04/29/22 05:26 04/29/22 05:26 Labs: Laboratory Last Values WBC 8.0 K/mm3 (4.5-11.0) 04/27/22 13:31 RBC 4.82 M/mm3 (3.65-5.03) 04/27/22 13:31 Hgb 15.0 gm/dl (11.8-15.2) 04/27/22 13:31 Hct 44.7 % (35.5-45.6) 04/27/22 13:31 MCV 93 fl (84-94) 04/27/22 13:31 MCH 31 pg (28-32) 04/27/22 13:31 MCHC 34 % (32-34) 04/27/22 13:31 RDW 12.9 % (13.2-15.2) L 04/27/22 13:31 Plt Count 506 K/mm3 (140-440) H 04/27/22 13:31 Lymph % (Auto) 21.9 % (13.4-35.0) 04/27/22 13:31 [place] % (Auto) 10.0 % (0.0-7.3) H 04/27/22 13:31 Eos % (Auto) 3.4 % (0.0-4.3) 04/27/22 13:31 Baso % (Auto) 0.8 % (0.0-1.8) 04/27/22 13:31 Lymph # (Auto) 1.7 K/mm3 (1.2-5.4) 04/27/22 13:31 [place] # (Auto) 0.8 K/mm3 (0.0-0.8) 04/27/22 13:31 Eos # (Auto) 0.3 K/mm3 (0.0-0.4) 04/27/22 13:31 Baso # (Auto) 0.1 K/mm3 (0.0-0.1) 04/27/22 13:31 Seg Neutrophils % 63.9 % (40.0-70.0) 04/27/22 13:31 Seg Neutrophils # 5.1 K/mm3 (1.8-7.7) 04/27/22 13:31 PT 13.9 Sec. (12.2-14.9) 04/27/22 13:31 INR 0.97 (0.87-1.13) 04/27/22 13:31 APTT 35.5 Sec. (24.2-36.6) 04/27/22 13:31 Sodium 135 mmol/L (137-145) L 04/27/22 13:31 Potassium 4.5 mmol/L (3.6-5.0) 04/27/22 13:31 Chloride 97.4 mmol/L (98-107) L 04/27/22 13:31 Carbon Dioxide 25 mmol/L (22-30) 04/27/22 13:31 Anion Gap 17 mmol/L 04/27/22 13:31 BUN 10 mg/dL (9-20) 04/27/22 13:31 Creatinine 0.8 mg/dL (0.8-1.3) 04/27/22 13:31 Estimated GFR > 60 ml/min 04/27/22 13:31 BUN/Creatinine Ratio 13 % 04/27/22 13:31 Glucose 150 mg/dL (75-100) H 04/27/22 13:31 Calcium 10.6 mg/dL (8.4-10.2) H 04/27/22 13:31 Magnesium 1.80 mg/dL (1.7-2.3) 04/27/22 13:31 Total Bilirubin 0.20 mg/dL (0.1-1.2) 04/27/22 13:31 AST 9 units/L (5-40) 04/27/22 13:31 ALT 16 units/L (7-56) 04/27/22 13:31 Alkaline Phosphatase 81 units/L (35-129) 04/27/22 13:31 Troponin T 0.066 ng/mL (0.00-0.029) H 04/28/22 13:15 Total Protein 7.0 g/dL (6.3-8.2) 04/27/22 13:31 Albumin 4.1 g/dL (3.9-5) 04/27/22 13:31 Albumin/Globulin Ratio 1.4 % 04/27/22 13:31 Triglycerides 156 mg/dL (2-149) H 04/27/22 13:31 Cholesterol 126 mg/dL (50-199) 04/27/22 13:31 LDL Cholesterol Direct 79 mg/dL (50-130) 04/27/22 13:31 HDL Cholesterol 29 mg/dL (40-59) L 04/27/22 13:31 Cholesterol/HDL Ratio 4.34 % 04/27/22 13:31 Short CBC 04/29/22 Range/Units 05:26 WBC 6.4 (4.5-11.0) K/mm3 Hgb 14.5 (11.8-15.2) gm/dl Hct 43.2 (35.5-45.6) % Plt Count 493 H (140-440) K/mm3 BMP 04/29/22 05:26 Sodium 138 Potassium 4.3 Chloride 103.8 Carbon Dioxide 24 BUN 9 Creatinine 0.7 L Glucose 121 H Calcium 9.9 Cardiac Enzymes 04/28/22 Range/Units 13:15 Troponin T 0.066 H (0.00-0.029) ng/mL Liver Function 04/29/22 Range/Units 05:26 Total Bilirubin 0.40 (0.1-1.2) mg/dL AST 11 (5-40) units/L ALT 14 (7-56) units/L Alkaline Phosphatase 69 (35-129) units/L Albumin 3.8 L (3.9-5) g/dL - Imaging and Cardiology EKG: report reviewed Imaging and Cardiology: EKG Abnormal T waves in the inferior leads Chest x-ray No acute findings Assessment and Plan Advance Directives: Yes (Full code) VTE prophylaxis?: Chemical Plan of care discussed with patient/family: Yes - Patient Problems (1) NSTEMI (non-ST elevated myocardial infarction) Current Visit: Yes Status: Acute Plan to address problem: Patient initiated on IV heparin Cardiology consult Defer to cardiology regarding cardiac cath Serial troponins (2) Hypertension Current Visit: Yes Status: Chronic Plan to address problem: Continue antihypertensives and adjust medications as necessary (3) T2DM (type 2 diabetes mellitus) Current Visit: Yes Status: Chronic Qualifiers: Diabetes mellitus mcfp insulin use: without mcfp use Plan to address problem: Continue metformin and coverage Check hemoglobin A1c (4) Hyperlipidemia Current Visit: Yes Status: Chronic Qualifiers: Hyperlipidemia type: mixed hyperlipidemia Qualified Code(s): E78.2 - Mixed hyperlipidemia Plan to address problem: On statins (5) Nicotine dependence in remission Current Visit: Yes Status: Acute Qualifiers: Nicotine product type: cigarettes Qualified Code(s): F17.211 - Nicotine dependence, cigarettes, in remission Plan to address problem: Patient counseled about avoiding cigarettes and to continue stopping smoking. Patient has stopped smoking on April 10 Patient does not want NicoDerm patch at this point Smoking cessation counseling 10 minutes (6) DVT prophylaxis Current Visit: No Status: Acute Plan to address problem: On heparin drip and GI prophylaxis (7) Advance care planning Current Visit: Yes Status: Acute Plan to address problem: Disease education conducted, care plan discussed, diagnosis discussed and prognosis discussed. Patient acknowledged understanding with care plan. +30 minutes.
--- NOTE | 2022-04-28 16:43 | Consultation ---
History of Present Illness Consult date: 04/28/22 Consult reason: chest pain History of present illness: The patient is a 57-year-old man who suffered an acute inferior myocardial in farction 3 weeks ago, treated at a hospital in [place] with coronary stenting of an occluded right coronary artery. He has been fully compliant with his dual antiplatelet therapy of aspirin and Plavix. At the time of his angiograms, it was reported with nonobstructive disease of the mid LAD, described as 70% in severity and recommended for conservative management as an initial approach. Also notably, during his evaluation with a CT angiogram of the chest, he was reported with a large mobile mass located in the distal arch of the aorta, described as likely an intimal tear of the aorta, no further management or anticoagulation was recommended for this lesion. The patient presents to the hospital at this time with atypical, nonexertional chest pain. Notably, his chest pain is not reminiscent of his angina of 3 weeks ago. In the emergency room, serial ECG showed a normal sinus rhythm with Q waves and ST T wave abnormality of the inferior leads which appear consistent with evolution of his recent inferior myocardial infarction. Troponin levels measured in the emergency room showed levels of 0.06-0.08, unchanged on 3 serial measurements. Past History Past Medical History: acute [place], CAD, COPD (Tobacco abuse), diabetes, hype rtension Medications and Allergies Allergies Allergy/AdvReac Type Severity Reaction Status Date / Time No Known Allergies Allergy Verified 04/28/22 15:12 Home Medications Medication Instructions Recorded Confirmed Last Taken Type Benzonatate [Tessalon Perles] 100 mg PO Q8HR PRN #20 capsule 05/31/19 Unknown Rx Pantoprazole [Protonix] 40 mg PO QDAY #30 tablet 12/27/19 Unknown Rx amLODIPine 10 mg PO DAILY #30 12/27/19 Unknown Rx metFORMIN [Glucophage] 850 mg PO BIDDIAB #60 tablet 12/27/19 Unknown Rx Active Meds: Active Medications Acetaminophen (Acetaminophen 325 Mg Tab) 650 mg PO Q4H PRN PRN Reason: Pain MILD(1-3)/Fever >100.5/RICHARDS Amlodipine Besylate (Amlodipine 10 Mg Tab) 10 mg PO DAILY ALEC Famotidine (Famotidine 20 Mg/2 Ml Inj) 20 mg IV BID ALEC Hydromorphone HCl (Hydromorphone 0.5 Mg/0.5 Ml Inj) 0.5 mg IV Q3H PRN PRN Reason: Pain , Severe (7-10) Insulin Human Lispro (Insulin Lispro 100 Unit/Ml) 0 unit SUB-Q ACHS ALEC; Protocol Metformin HCl (Metformin 850 Mg Tab) 850 mg PO BIDDIAB ALEC Metoclopramide HCl (Metoclopramide 10 Mg/2 Ml Inj) 10 mg IV Q6H PRN PRN Reason: Nausea And Vomiting Morphine Sulfate (Morphine 2 Mg/1 Ml Inj) 2 mg IV Q4H PRN PRN Reason: Pain, Moderate (4-6) Ondansetron HCl (Ondansetron 4 Mg/2 Ml Inj) 4 mg IV Q8H PRN PRN Reason: Nausea And Vomiting Ondansetron HCl (Ondansetron 4 Mg/2 Ml Inj) 4 mg IV Q3H PRN PRN Reason: Nausea And Vomiting Oxycodone/Acetaminophen (Oxycodone /Acetaminophen 5-325mg Tab) 1 tab PO Q6H PRN PRN Reason: Pain, Moderate (4-6) Pantoprazole Sodium (Pantoprazole 40 Mg Tab) 40 mg PO QDAY ALEC Sodium Chloride (Sodium Chloride 0.9% 10 Ml Flush Syringe) 10 ml IV BID ALEC Sodium Chloride (Sodium Chloride 0.9% 10 Ml Flush Syringe) 10 ml IV PRN PRN PRN Reason: LINE FLUSH Sodium Chloride (Sodium Chloride 0.9% 10 Ml Flush Syringe) 10 ml IV BID ALEC Sodium Chloride (Sodium Chloride 0.9% 10 Ml Flush Syringe) 10 ml IV PRN PRN PRN Reason: LINE FLUSH Review of Systems Cardiovascular: chest pain, shortness of breath, no orthopnea, no palpitations, no rapid/irregular heart beat, no edema, no syncope, no lightheadedness Physical Examination Vital Signs Temp Pulse Resp BP Pulse Ox 98.9 F 102 H 14 112/63 98 04/27/22 13:32 04/27/22 13:32 04/27/22 13:32 04/27/22 13:32 04/27/22 13:32 General appearance: no acute distress HEENT: Positive: PERRL Neck: Positive: neck supple Cardiac: Positive: Reg Rate and Rhythm Lungs: Positive: Decreased Breath Sounds Neuro: Positive: Grossly Intact Abdomen: Positive: Soft, Active Bowel Sounds. Negative: Tender, Distended Male genitourinary: Positive: deferred Skin: Positive: Clear Extremities: Absent: edema Results 04/27/22 13:31 04/27/22 13:31 EKG interpretations - Telemetry EKG Rhythm: Sinus Rhythm (With Q waves and ST segment abnormality of recent inferior myocardial infarction) Assessment and Plan - Patient Problems (1) Chest pain Current Visit: Yes Status: Acute Plan to address problem: Patient with history of recent acute inferior myocardial infarction treated with primary stenting of the right coronary artery. Fully compliant with dual oral antiplatelet therapy. Presents with atypical chest pain, not reminiscent of his prior angina. EKG shows changes of his recent myocardial infarction. Troponin levels are nonspecific, unchanged on serial measurements and likely represent the tail end of his recent infarct. The patient has nonobstructive LAD disease as described, we will plan noninvasive assessment of the LAD disease with possible coronary CT angiogram, which may be followed up as an outpatient. I will avoid retrograde coronary angiography unless strongly indicated, given the risks of further disruption of the incomplete intimal tear of his aortic arch.
[2022-04-28] MEDS: amLODIPine 10 MG TAB PO SCH (17:20)
[2022-04-28] MEDS: INSULIN LISPRO 100 UNIT/ML SUB-Q SCH ×2 (18:12→23:02)
[2022-04-28] MEDS: ASPIRIN EC 81 MG TAB PO SCH (18:21)
[2022-04-28] MEDS: CLOPIDOGREL 75 MG TAB PO SCH (18:22)
[2022-04-28] MEDS: METOPROLOL TARTRATE 25 MG TAB PO SCH (18:22)
[2022-04-28] MEDS: metFORMIN 850 MG TAB PO SCH (22:57)
[2022-04-28] MEDS: FAMOTIDINE 20 MG/2 ML INJ IV SCH (23:07)
[2022-04-29] MEDS: METOPROLOL TARTRATE 25 MG TAB PO SCH ×2 (01:30→10:00)
[2022-04-29 05:52] LABS: Basophils # (Auto) 0.1 K/mm3 (0.0-0.1); Basophils % (Auto) 1.1 % (0.0-1.8); Eosinophils # (Auto) 0.3 K/mm3 (0.0-0.4); Eosinophils % (Auto) 5.3 % (0.0-4.3); Hematocrit 43.2 % (35.5-45.6); Hemoglobin 14.5 gm/dl (11.8-15.2); Lymphocytes # (Auto) 1.8 K/mm3 (1.2-5.4); Lymphocytes % (Auto) 28.1 % (13.4-35.0); Mean Corpuscular HGB Conc 34 % (32-34); Mean Corpuscular Volume 92 fl (84-94); Monocytes # (Auto) 0.7 K/mm3 (0.0-0.8); Monocytes % (Auto) 11.3 % (0.0-7.3); Platelet Count 493 K/mm3 (140-440); Red Blood Count 4.69 M/mm3 (3.65-5.03); Red Cell Distribution Width 12.6 % (13.2-15.2)
[2022-04-29 06:14] LABS: Alanine Aminotransferase 14 units/L (7-56); Albumin 3.8 g/dL (3.9-5); Blood Urea Nitrogen 9 mg/dL (9-20); Calcium 9.9 mg/dL (8.4-10.2); Hemolysis Index 21
[2022-04-29 06:16] LABS: BUN/Creatinine Ratio 13
[2022-04-29] MEDS ORDERED: HEPARIN 10,000 UNITS/10 ML VIAL IV PRN (06:45)
[2022-04-29] MEDS ORDERED: HEPARIN/ 0.45% NACL DRIP 25,000 UNIT/500 ML BAG IV SCH ×2 (07:00)
[2022-04-29] MEDS ORDERED: HEPARIN 10,000 UNITS/10 ML VIAL IV ONE (07:05)
[2022-04-29 08:45] LABS: Hematocrit 44.8 % (35.5-45.6); Hemoglobin 14.8 gm/dl (11.8-15.2)
[2022-04-29 08:51] LABS: INR 0.98 (0.87-1.13)
[2022-04-29] MEDS: metFORMIN 850 MG TAB PO SCH (08:54)
[2022-04-29] MEDS: INSULIN LISPRO 100 UNIT/ML SUB-Q SCH ×2 (08:54→13:43)
[2022-04-29] MEDS: HYDROmorphone 0.5 MG/0.5 ML INJ IV PRN ×3 (08:55→17:20)
[2022-04-29 09:15] LABS: Partial Thromboplastin Time 32.3 Sec. (24.2-36.6)
[2022-04-29] MEDS ORDERED: PANTOPRAZOLE 40 MG TAB PO SCH (10:00)
[2022-04-29] MEDS: amLODIPine 10 MG TAB PO SCH (10:00)
[2022-04-29] MEDS: CLOPIDOGREL 75 MG TAB PO SCH (10:22)
[2022-04-29] MEDS: FAMOTIDINE 20 MG/2 ML INJ IV SCH (10:22)
[2022-04-29] MEDS: ASPIRIN EC 81 MG TAB PO SCH (10:23)
--- NOTE | 2022-04-29 14:11 | Discharge Summary ---
Providers - Providers Date of Admission: 04/28/22 14:49 Date of discharge: 04/29/22 Attending physician: JUHI REBOLLAR MD 04/28/22 14:07 Consult to Physician [CONS] Urgent Comment: Consulting Provider: GARCÍA PINEDA Physician Instructions: Reason For Exam: chest pain, CAD 3 stents Primary care physician: [facility] Hospitalization Reason for admission: chest pain Condition: Stable Hospital course: History of present illness: 57-year-old male with history of coronary artery disease, hypertension, T2DM and GERD comes in for intermittent chest pain since yesterday afternoon. Chest pain is about 6 on a scale of 1-10. Exertion is a precipitating factor. Mohsen drummond had recently had 3 stents placed on April 10 in [facility]. Patient was a heavy smoker ~quit smoking since April 10. Chest pain is exacerbated by exertion and relieved by rest. No radiation. No shortness of breath. No diaphoresis. No nausea or vomiting. Hospital Course Per cardiology note: "The patient is a 57-year-old man who suffered an acute inferior myocardial infarction 3 weeks ago, treated at a hospital in [place] with coronary stenting of an occluded right coronary artery. He has been fully compliant with his dual antiplatelet therapy of aspirin and Plavix. At the time of his angiograms, it was reported with nonobstructive disease of the mid LAD, described as 70% in severity and recommended for conservative management as an initial approach. Also notably, during his evaluation with a CT angiogram of the chest, he was reported with a large mobile mass located in the distal arch of the aorta, described as likely an intimal tear of the aorta, no further management or anticoagulation was recommended for this lesion. The patient presents to the hospital at this time with atypical, nonexertional chest pain. Notably, his chest pain is not reminiscent of his angina of 3 weeks ago. In the emergency room, serial ECG showed a normal sinus rhythm with Q waves and ST T wave abnormality of the inferior leads which appear consistent with evolution of his recent inferior myocardial infarction. Troponin levels measured in the emergency room showed levels of 0.06-0.08, unchanged on 3 serial measurements." Patient was admitted for chest pain. He has a history of CAD with notable stent placement in [facility] in [place]. He has 70% occlusion in LAD and at th time of AL 3 weeks ago, conservative medical management was recommended. Patient was also notted at the time to have inimal tear in aorta which was identified on CT angiogram. At our facility, the only notable finding was mild troponin elevation of 0.08 and 0.06 as well as q waves and st - t abnl on ekg in inferior leads c/w with prior RCA infarct. After discussion with cardiology, recommendation for optimized medical management and repeat outpaitent cardiac CT angiogram was determined as the best treatment plan. Patient is high risk for cardiac cath given intimal tear and would best be benefited by staged approach after careful coordination with OP research aide. Patient can be discharge home with rx for asa, plavix, imdur, amlodpiine, atorvastatin, metoprolol, lisinopril . patient advised to follow up with OP primary care physician and research aide gilberto. interpretative services were utilized to communicate all information as patient is exclusively ukrainian speaking. Assessment and Plan: (1) NSTEMI (non-ST elevated myocardial infarction) Current Visit: Yes Status: Acute Plan to address problem: Patient initiated on IV heparin Cardiology consult Defer to cardiology regarding cardiac cath Serial troponins (2) Hypertension Current Visit: Yes Status: Chronic Plan to address problem: Continue antihypertensives and adjust medications as necessary (3) T2DM (type 2 diabetes mellitus) Current Visit: Yes Status: Chronic Qualifiers: Diabetes mellitus adjunct faculty for medical terminology insulin use: without adjunct faculty for medical terminology use Plan to address problem: Continue metformin and coverage Check hemoglobin A1c (4) Hyperlipidemia Current Visit: Yes Status: Chronic Qualifiers: Hyperlipidemia type: mixed hyperlipidemia Qualified Code(s): E78.2 - Mixed hyperlipidemia Plan to address problem: On statins (5) Nicotine dependence in remission Current Visit: Yes Status: Acute Qualifiers: Nicotine product type: cigarettes Qualified Code(s): F17.211 - Nicotine dependence, cigarettes, in remission Plan to address problem: Patient counseled about avoiding cigarettes and to continue stopping smoking. Patient has stopped smoking on April 10 Patient does not want NicoDerm patch at this point Smoking cessation counseling 10 minutes (6) DVT prophylaxis Current Visit: No Status: Acute Plan to address problem: On heparin drip and GI prophylaxis (7) Advance care planning Current Visit: Yes Status: Acute Plan to address problem: Disease education conducted, care plan discussed, diagnosis discussed and prognosis discussed. Patient acknowledged understanding with care plan. +30 minutes. Disposition: HOME / SELF CARE / HOMELESS Final Discharge Diagnosis (Prints w/discharge instructions): NSTEMI Time spent for discharge: 35 Core Measure Documentation - Palliative Care Palliative Care/ Comfort Measures: Not Applicable - Core Measures Any of the following diagnoses?: acute AL - Acute AL Discharge Requirements Aspirin at discharge: Yes RASHAUN/ARB for LVSD if EF <40%: Yes Beta joe at discharge: Yes Statin for LDL = or >100 mg/dl on DC: Yes Exam - Physical Exam Narrative exam: Physical Exam: VITAL SIGNS: Reviewed. GENERAL: The patient appears normally developed, Vital signs as documented. HEAD: No signs of head trauma. EYES: Pupils are equal. Extraocular motions intact. EARS: Hearing grossly intact. MOUTH: Oropharynx is normal. NECK: No adenopathy, no JVD. CHEST: Chest with clear breath sounds bilaterally. No wheezes, rales, or rho nchi. CARDIAC: Regular rate and rhythm. S1 and S2, without murmurs, gallops, or rubs. VASCULAR: No Edema. Peripheral pulses normal and equal in all extremities. ABDOMEN: Soft, non tender and non distended. No rebound or guarding, and no masses palpated. Bowel Sounds normal. MUSCULOSKELETAL: Good range of motion of all major joints. Extremities without clubbing, cyanosis or edema. NEUROLOGIC EXAM: Alert and oriented x 4. no focal sensory or strength deficits. PSYCHIATRIC: Mood normal. SKIN: detail exam as documented in skin assessment - Constitutional Vitals: Temp Pulse Resp BP Pulse Ox 98.0 F 93 H 18 90/61 97 04/29/22 11:17 04/29/22 11:17 04/29/22 11:17 04/29/22 11:17 04/29/22 11:17 Plan Follow up with: PRIMARY CARE, [Primary Care Provider] - 3-5 Days Prescriptions: AtorvaSTATin [Lipitor] 40 mg PO QHS 30 Days #30 tablet amLODIPine 10 mg PO DAILY 30 Days #30 tab Aspirin EC [Halfprin EC] 81 mg PO QDAY 30 Days #30 tablet ISOSORBIDE MONOnitrate [Imdur ER] 30 mg PO QDAY 30 Days #30 tablet Metoprolol [Lopressor TAB] 25 mg PO Q8H 30 Days #90 tablet Clopidogrel [Plavix] 75 mg PO QDAY 30 Days #30 tablet
--- NOTE | 2022-04-29 14:15 | Progress Note ---
Assessment and Plan - Patient Problems (1) Chest pain Current Visit: Yes Status: Acute Plan to address problem: Patient is stable for cardiac discharge, continue current medical therapy including addition of long-acting nitrates to his guideline directed medical r egimen. Follow-up with his primary topographical surveyor Dr. Natanael Irby in 5 to 7 days. Subjective Date of service: 04/29/22 Principal diagnosis: Chest pain Interval history: Patient is comfortable, no new cardiac complaints, looks and feels well. Objective Vital Signs Temp Pulse Resp BP BP Pulse Ox 04/29/22 11:17 98.0 F 93 H 18 90/61 97 04/29/22 11:00 18 99 04/29/22 08:26 98.9 F 94 H 18 98/66 96 04/29/22 07:00 93 H 04/29/22 03:24 98.0 F 85 18 96/60 96 04/29/22 01:30 86 04/28/22 23:48 86 04/28/22 23:44 18 99 04/28/22 22:59 98.3 F 84 17 99/63 99 04/28/22 15:28 87 18 113/68 98 - Physical Examination General: No Apparent Distress HEENT: Positive: PERRL Neck: Positive: neck supple Cardiac: Positive: Reg Rate and Rhythm Lungs: Positive: Decreased Breath Sounds Neuro: Positive: Grossly Intact Abdomen: Positive: Soft, Active Bowel Sounds. Negative: Tender, Distended Skin: Positive: Clear Extremities: Absent: edema - Labs and Meds Cardiac Enzymes 04/29/22 Range/Units 05:26 AST 11 (5-40) units/L Coagulation 04/29/22 Range/Units 08:03 PT 14.1 (12.2-14.9) Sec. INR 0.98 (0.87-1.13) APTT 32.3 (24.2-36.6) Sec. CBC 04/29/22 04/29/22 Range/Units 05:26 08:03 WBC 6.4 (4.5-11.0) K/mm3 RBC 4.69 (3.65-5.03) M/mm3 Hgb 14.5 14.8 (11.8-15.2) gm/dl Hct 43.2 44.8 (35.5-45.6) % Plt Count 493 H 522 H (140-440) K/mm3 Lymph # (Auto) 1.8 (1.2-5.4) K/mm3 [place] # (Auto) 0.7 (0.0-0.8) K/mm3 Eos # (Auto) 0.3 (0.0-0.4) K/mm3 Baso # (Auto) 0.1 (0.0-0.1) K/mm3 Comprehensive Metabolic Panel 04/29/22 Range/Units 05:26 Sodium 138 (137-145) mmol/L Potassium 4.3 (3.6-5.0) mmol/L Chloride 103.8 (98-107) mmol/L Carbon Dioxide 24 (22-30) mmol/L BUN 9 (9-20) mg/dL Creatinine 0.7 L (0.8-1.3) mg/dL Glucose 121 H (75-100) mg/dL Calcium 9.9 (8.4-10.2) mg/dL AST 11 (5-40) units/L ALT 14 (7-56) units/L Alkaline Phosphatase 69 (35-129) units/L Total Protein 6.6 (6.3-8.2) g/dL Albumin 3.8 L (3.9-5) g/dL - Imaging and Cardiology EKG: report reviewed
[2022-04-29 16:55] VITALS: BP 94/55
--- NOTE | 2022-04-30 09:52 | Electrocardiograph Report ---
[facility] Test Date: 2022-04-29 Test Time: 07:08:27 Pat Name: REYNA GANDARA Department: Room: A483 1 Gender: M Vehicle Maintenance Supervisor: MARTY : 1965 Requested By: JUHI REBOLLAR Order Number: [id number] Reading MD: Edin Cardozo Measurements Intervals [place] Rate: 87 P: 66 [place]: 148 QRS: 54 QRSD: 77 T: 49 QT: 366 QTc: 440 Interpretive Statements Sinus rhythm ST elevation suggests acute pericarditis Compared to ECG 04/28/2022 13:20:27 ST (T wave) deviation now present Myocardial infarct finding no longer present Electronically Signed On 04-30-2022 9:51:43 EDT by Edin Cardozo
== END 2022-04-29 18:51 | disposition home or self-care (01) ==
LOC: ED 13:20 → INTOOBSV 04-28 14:49 → 4A 04-28 14:49
PROVIDERS: ADMIT Internal Medicine; ATTEND Internal Medicine
DX: I21.4 Non-ST elevation (NSTEMI) myocardial infarction (principal); I10 Essential (primary) hypertension; E11.9 Type 2 diabetes mellitus without complications; E78.2 Mixed hyperlipidemia; I25.2 Old myocardial infarction; F17.211 Nicotine dependence, cigarettes, in remission; Z90.49 Acquired absence of other specified parts of digestive tract; Z79.899 Other long term (current) drug therapy; Z98.890 Other specified postprocedural states; Z79.84 Long term (current) use of oral hypoglycemic drugs
CPT/HCPCS: 36415; 71046; 80053; 80061; 82962; 83735; 84484; 85014; 85018; 85025; 85049; 85520; 85610; 85730; 93005; 96365; 96372; 96375; 96376; 99285; G0378; J1170; J1644; J3490; Q9967; J1815